=== PATIENT | female | born 1970 | race Caucasian/White ===

== ENCOUNTER 2016-12-12 10:25 | Emergency (ER) | payer SELFPAY ==
[2016-12-12] MEDS ORDERED: IBUPROFEN 800 MG TABLET PO ONE (10:34)
--- NOTE | 2016-12-12 10:35 | ER Document Report ---
ED Medical Screen (RME) - General Stated Complaint: ABDOMINAL PAIN Mode of Arrival: Ambulatory Information source: Patient Notes: Patient presents to the emergency department via EMS for right side pain right upper quadrant pain reports pain with void for the last few days. Also reports migraine nausea. Reports recent treatment for UTI. Reports history of kidney stones and gallbladder issues. I have greeted and performed a rapid initial assessment of this patient. A comprehensive ED assessment and evaluation of the patient, analysis of test results and completion of the medical decision making process will be conducted by additional ED providers. TRAVEL OUTSIDE OF THE [place] IN LAST 30 DAYS: No - Related Data Allergies/Adverse Reactions: No Known Allergies Allergy (Verified 12/12/16 10:33) Past Medical History - Past Medical History Cardiac Medical History: Reports: Hx Hypertension - Off lisinopril for months. Says she can't afford it despite it being $4 Pulmonary Medical History: Reports: Hx COPD Renal/ Medical History: Reports: Hx Kidney Stones Musculoskeltal Medical History: Reports Hx Musculoskeletal Trauma Psychiatric Medical History: Reports: Hx Anxiety, Hx Depression Traumatic Medical History: Reports: Hx Fractures - Wrist Past Surgical History: Reports: Hx Appendectomy, Hx Tubal Ligation - Immunizations Hx Diphtheria, Pertussis, Tetanus Vaccination: No
[2016-12-12 11:31] LABS: APPEARANCE,URINE SLIGHTLY-CLOUDY; BILIRUBIN,URINE NEGATIVE (NEGATIVE); GLUCOSE, URINE NEGATIVE (NEGATIVE); KETONES,URINE NEGATIVE (NEGATIVE); LEUKOCYTE ESTERASE,URINE SMALL (NEGATIVE); NITRITE,URINE NEGATIVE (NEGATIVE); PROTEIN,URINE NEGATIVE (NEGATIVE); URINE SPECIFIC GRAVITY 1.008; UROBILINOGEN,URINE NEGATIVE mg/dL (<2.0)
[2016-12-12] MEDS ORDERED: MORPHINE SULFATE 10 MG/ML INJ IV ONE (12:13)
--- NOTE | 2016-12-12 12:13 | ER Document Report ---
ED GI/ - General Chief Complaint: Abdominal Pain Stated Complaint: ABDOMINAL PAIN Mode of Arrival: Ambulatory Information source: Patient Notes: Patient presents complaining of right lower pelvic pain that radiates around to right flank area for the past 2-3 days. Patient does report some burning with urination. Patient does complain some nausea vomiting and diarrhea. Patient states she's vomited once today and had diarrhea 3 episodes. Patient denies any fever. Patient does report mild headache pain. Patient ports previous history kidney stones and is concerned about that today. TRAVEL OUTSIDE OF THE [place] IN LAST 30 DAYS: No - HPI Patient complains to provider of: Abdominal pain, Dysuria, Flank pain Onset: Other - 3 days Timing/Duration: Gradual Quality of pain: Achy Pain Level: 3 Context: denies: Location: RLQ, Right flank Vaginal bleeding (Compared to normal period): None Sexual history: Active Associated symptoms: Diarrhea, Dysuria, Nausea, Vomiting. denies: Fever, Loss of appetite, Urinary hesitancy, Urinary frequency, Urinary retention, Urinary urgency, Vaginal discharge Exacerbated by: Denies Relieved by: Denies Similar symptoms previously: Yes Recently seen / treated by doctor: No - Related Data Allergies/Adverse Reactions: No Known Allergies Allergy (Verified 12/12/16 10:33) Past Medical History - General Information source: Patient Last Menstrual Period: 12/05/2016 - Social History Smoking Status: Current Every Day Smoker Chew tobacco use (# tins/day): No Frequency of alcohol use: None Drug Abuse: None Occupation: none Lives with: Spouse/Significant other Family History: CAD, CVA, DM, Hyperlipidemia, Hypertension, Malignancy Patient has suicidal ideation: No Patient has homicidal ideation: No - Past Medical History Cardiac Medical History: Reports: Hx Hypertension - Off lisinopril for months. Says she can't afford it despite it being $4 Pulmonary Medical History: Reports: Hx COPD Renal/ Medical History: Reports: Hx Kidney Stones. Denies: Hx Peritoneal Dialysis Musculoskeltal Medical History: Reports Hx Musculoskeletal Trauma Psychiatric Medical History: Reports: Hx Anxiety, Hx Depression Traumatic Medical History: Reports: Hx Fractures - Wrist Past Surgical History: Reports: Hx Appendectomy, Hx Tubal Ligation - Immunizations Hx Diphtheria, Pertussis, Tetanus Vaccination: No Review of Systems - Review of Systems Constitutional: No symptoms reported. denies: Fever, Recent illness EENT: No symptoms reported Cardiovascular: No symptoms reported. denies: Chest pain Respiratory: No symptoms reported. denies: Cough, Short of breath Gastrointestinal: Abdominal pain - Right lower quadrant, Diarrhea, Nausea, Vomiting. denies: Poor appetite Genitourinary: Dysuria, Flank pain Female Genitourinary: No symptoms reported. denies: , Vaginal discharge , Vaginal bleeding Musculoskeletal: Back pain - Right flank Skin: No symptoms reported Hematologic/Lymphatic: No symptoms reported Neurological/Psychological: No symptoms reported Physical Exam - Vital signs Vitals: Temp Pulse Resp BP Pulse Ox 98.4 F 77 20 182/91 H 100 12/12/16 10:38 12/12/16 10:38 12/12/16 10:38 12/12/16 10:38 12/12/16 10:38 - General General appearance: Appears well, Alert In distress: None - HEENT Head: Normocephalic, Atraumatic Eyes: Normal Nasal: Normal Mouth/Lips: Normal Mucous membranes: Normal Neck: Normal, Supple. No: Lymphadenopathy - Respiratory Respiratory status: No respiratory distress Chest status: Nontender Breath sounds: Normal. No: Rales, Rhonchi, Stridor, Wheezing Chest palpation: Normal - Cardiovascular Rhythm: Regular Heart sounds: S1 appreciated, S2 appreciated Murmur: No - Abdominal Inspection: Normal Distension: No distension Bowel sounds: Normal Tenderness: Tender - Right lateral side of abdomen. No: McBurney's point, Charles's sign Organomegaly: No organomegaly - Genitourinary External exam: Normal Speculum exam: Cervix closed Vaginal bleeding: None Bimanuel exam: Adnexal mass - Right side, Adnexal tenderness - Bilateral - Back Back: CVA tenderness - Right - Extremities General upper extremity: Normal inspection, Normal strength General lower extremity: Normal inspection, Normal strength - Neurological Neuro grossly intact: Yes Cognition: Normal [place] Coma Scale Eye Opening: Spontaneous [place] Coma Scale Verbal: Oriented Jb Coma Scale Motor: Obeys Commands [place] Coma Scale Total: 15 - Psychological Associated symptoms: Normal affect, Normal mood - Skin Skin Temperature: Warm Skin Moisture: Dry Skin Color: Normal Course - Re-evaluation Re-evalutation: 12/12/16 13:[address] Julio regarding patient presentation, agrees with plan for ultrasound imaging 12/12/16 15:55 Consulted with [employer] Dr. Bustillos who recommends outpatient follow-up in the office next week. Recommends having patient call the office for follow-up. Also recommends to follow patient up for repeat ultrasound in about a month's time as an outpatient. No additional testing recommended at this time. - Vital Signs Vital signs: Temp Pulse Resp BP Pulse Ox 98.5 F 73 18 176/92 H 98 12/12/16 16:25 12/12/16 16:25 12/12/16 16:25 12/12/16 16:25 12/12/16 16:25 - Laboratory Result Diagrams: 12/12/16 12:17 12/12/16 12:17 Laboratory results interpreted by me: 12/12/16 12/12/16 12/12/16 11:02 12:17 12:17 Hgb 11.5 L Hct 34.6 L MCV 77 L MCH 25.6 L RDW 17.3 H Chloride 108 H Urine Blood SMALL H Ur Leukocyte Esterase SMALL H 12/12/16 15:56 Labs- Entire Visit 12/12/16 12/12/16 12/12/16 11:02 12:17 12:17 WBC 8.5 RBC 4.49 Hgb 11.5 L Hct 34.6 L MCV 77 L MCH 25.6 L MCHC 33.2 RDW 17.3 H Plt Count 224 Seg Neutrophils % 66.8 Lymphocytes % 23.3 Monocytes % 8.5 Eosinophils % 0.6 Basophils % 0.8 Absolute Neutrophils 5.6 Absolute Lymphocytes 2.0 Absolute Monocytes 0.7 Absolute Eosinophils 0.1 Absolute Basophils 0.1 Sodium 142.7 Potassium 4.1 Chloride 108 H Carbon Dioxide 24 Anion Gap 11 BUN 11 Creatinine 0.59 Est GFR ( Amer) > 60 Est GFR (Non-Af Amer) > 60 Glucose 80 Calcium 8.9 Total Bilirubin 0.3 Direct Bilirubin 0.2 Indirect Bilirubin Not Reportable Neonat Total Bilirubin Not Reportable AST 16 ALT 22 Alkaline Phosphatase 75 Total Protein 6.6 Albumin 3.9 Lipase 132.6 Serum HCG, Qual Urine Color YELLOW Urine Appearance SLIGHTLY-CLOUDY Urine pH 7.0 Ur Specific [place] 1.008 Urine Protein NEGATIVE Urine Glucose (UA) NEGATIVE Urine Ketones NEGATIVE Urine Blood SMALL H Urine Nitrite NEGATIVE Urine Bilirubin NEGATIVE Urine Urobilinogen NEGATIVE Ur Leukocyte Esterase SMALL H Urine WBC (Auto) 6 Urine RBC (Auto) 2 Squamous Epi Cells Auto 7 Urine Ascorbic Acid NEGATIVE Trichomonas (Wet Prep) Vaginal WBC Vaginal RBC Vaginal Yeast Chlamydia DNA (PCR) N.gonorrhoeae DNA (PCR) 12/12/16 12/12/16 12/12/16 12:17 13:56 13:56 WBC RBC Hgb Hct MCV MCH MCHC RDW Plt Count Seg Neutrophils % Lymphocytes % Monocytes % Eosinophils % Basophils % Absolute Neutrophils Absolute Lymphocytes Absolute Monocytes Absolute Eosinophils Absolute Basophils Sodium Potassium Chloride Carbon Dioxide Anion Gap BUN Creatinine Est GFR ( Amer) Est GFR (Non-Af Amer) Glucose Calcium Total Bilirubin Direct Bilirubin Indirect Bilirubin Neonat Total Bilirubin AST ALT Alkaline Phosphatase Total Protein Albumin Lipase Serum HCG, Qual NEGATIVE Urine Color Urine Appearance Urine pH Ur Specific [place] Urine Protein Urine Glucose (UA) Urine Ketones Urine Blood Urine Nitrite Urine Bilirubin Urine Urobilinogen Ur Leukocyte Esterase Urine WBC (Auto) Urine RBC (Auto) Squamous Epi Cells Auto Urine Ascorbic Acid Trichomonas (Wet Prep) NO TRICHOMONAS SEEN Vaginal WBC FEW WBCS SEEN Vaginal RBC RARE RBCS SEEN Vaginal Yeast NO YEAST SEEN Chlamydia DNA (PCR) NOT DETECTED N.gonorrhoeae DNA (PCR) NOT DETECTED 12/12/16 16:06 12/12/16 18:36 - Diagnostic Test Radiology reviewed: Reports reviewed Discharge - Discharge Clinical Impression: Flank pain, Urinary symptom or sign, Ovarian mass, right, Vomiting and diarrhea Hypertension Qualifiers: Hypertension type: essential hypertension Qualified Code(s): I10 - Essential ( primary) hypertension Condition: Stable Disposition: HOME, SELF-CARE Instructions: Abdominal Pain ([facility]), Oral Narcotic Medication ([facility]), Antinausea Medication ([facility]), High Blood Pressure, Requiring Treatment ([facility]), Growth or Mass , Pending Workup ([facility]), Nausea or Vomiting, Nonspecific ([facility]), Diarrhea, Nonspecific ([facility]), Urinary Tract Infection ([facility]) Additional Instructions: Return immediately for any new or worsening symptoms Followup with your primary care provider, call tomorrow to make a followup appointment. A primary doctor can refill your blood pressure medications for you. Your ultrasound showed a mass within your right ovary. Follow-up with Dr. Bustillos next week. Call the office on Tuesday for an appointment. Left the office staff know that you were seen in the emergency department and that she would like to see you next week for further evaluation. She would also like you to have a repeat ultrasound in a month. Follow up with a urologist for further evaluation Prescriptions: Cephalexin Monohydrate [Keflex 500 mg Capsule] 500 mg PO BID 7 Days Hydrocodone/Acetaminophen [[place] 5-325 Tablet] 1 each PO Q4 PRN #15 tablet PRN Reason: Lisinopril 10 mg PO DAILY #7 tablet Forms: Elevated Blood Pressure Referrals: JORJE DIALLO MD [ACTIVE STAFF] - Follow up in 3-5 days [facility] [Provider Group] - Follow up tomorrow
[2016-12-12 12:28] LABS: ABSOLUTE BASOPHILS # (AUTO) 0.1 10^3/uL (0.0-0.2); ABSOLUTE EOSINOPHILS # (AUTO) 0.1 10^3/uL (0.0-0.6); ABSOLUTE MONOCYTES (AUTO) 0.7 10^3/uL (0.1-1.4); ABSOLUTE NEUT (AUTO) 5.6 10^3/uL (1.7-8.2); BASOPHILS % (AUTO) 0.8 % (0-2); EOSINOPHILS % (AUTO) 0.6 % (0-6); HEMATOCRIT 34.6 % (36.0-47.0); HEMOGLOBIN 11.5 g/dL (12.0-15.5); HGB HCT DIFFERENCE -0.1; LYMPHOCYTES % (AUTO) 23.3 % (13-45); MEAN CORPUSCULAR HEMOGLOBIN 25.6 pg (27.0-33.4); MEAN CORPUSCULAR HGB CONC 33.2 g/dL (32.0-36.0); MEAN CORPUSCULAR VOLUME 77 fl (80-97); MONOCYTES % (AUTO) 8.5 % (3-13); RED BLOOD COUNT 4.49 10^6/uL (3.72-5.28); RED CELL DISTRIBUTION WIDTH 17.3 % (11.5-14.0); SEGMENTED NEUTROPHILS % (AUTO) 66.8 % (42-78); WHITE BLOOD COUNT 8.5 10^3/uL (4.0-10.5)
[2016-12-12 12:45] LABS: ALANINE AMINOTRANSFERASE 22 U/L (9-52); ALBUMIN 3.9 g/dL (3.5-5.0); ALKALINE PHOSPHATASE 75 U/L (38-126); ANION GAP 11 (5-19); ASPARTATE AMINO TRANSFERASE 16 U/L (14-36); BILIRUBIN,DIRECT 0.2 mg/dL (0.0-0.4); BILIRUBIN,TOTAL 0.3 mg/dL (0.2-1.3); BLOOD UREA NITROGEN 11 mg/dL (7-20); CALCIUM 8.9 mg/dL (8.4-10.2); CARBON DIOXIDE 24 mmol/L (22-30); CHLORIDE 108 mmol/L (98-107); CREATININE RESULT 0.59 mg/dL (0.52-1.25); GLUCOSE 80 mg/dL (75-110); LIPASE 132.6 U/L (23-300); POTASSIUM 4.1 mmol/L (3.6-5.0); SODIUM 142.7 mmol/L (137-145); TOTAL PROTEIN 6.6 g/dL (6.3-8.2)
[2016-12-12 15:43] LABS: CHLAM PCR NOT DETECTED (NOT DETECT)
[2016-12-12 16:29] VITALS: BP 176/92
== END 2016-12-12 16:29 | disposition home or self-care (01) ==
LOC: ER 10:25
DX: R10.2 Pelvic and perineal pain (principal); N83.9 Noninflammatory disorder of ovary, fallopian tube and broad ligament, unspecified; R30.0 Dysuria; R11.2 Nausea with vomiting, unspecified; R19.7 Diarrhea, unspecified; R51 Headache; I10 Essential (primary) hypertension; J44.9 Chronic obstructive pulmonary disease, unspecified; F17.200 Nicotine dependence, unspecified, uncomplicated; Z87.442 Personal history of urinary calculi; Z90.49 Acquired absence of other specified parts of digestive tract; Z98.51 Tubal ligation status
CPT/HCPCS: 99284; 96374; 36415; 87210; 83690; 84703; 85025; 80053; 81001; 87491; 87591; 76830; 93976; J2270

== ENCOUNTER 2017-01-03 14:36 | Emergency (ER) | payer SELFPAY ==
[2017-01-03] MEDS ORDERED: OXYCODONE-ACETAMINOPHEN 5-325 MG TABLET PO ONE ×2 (16:06→21:51)
[2017-01-03] MEDS ORDERED: ONDANSETRON 4 MG TAB.RAPDIS PO ONE (16:06)
[2017-01-03] MEDS ORDERED: LISINOPRIL 10 MG TABLET PO ONE (16:07)
--- NOTE | 2017-01-03 16:09 | ER Document Report ---
ED Medical Screen (RME) - General Chief Complaint: Abdominal Pain Stated Complaint: ABDOMINAL PAIN Notes: This 46-year-old female patient comes in from complaining of right lower quadrant abdominal pain for 23 weeks. She was seen here and found to have a right ovarian mass. She reports she feels more swollen and the pain is getting worse. There is been off and on vaginal bleeding. She also has a migraine headache. She also reports her urine has been darker and just dribbles. Her blood pressure is elevated. She does not have blood pressure medication. She was referred at that time to [facility] and see Dr. Bustillos, she did not do this. She is also to follow-up with a primary care provider for blood pressure medication she did not do that. She reports the car is broken down, they have no friends or family. I have greeted and performed a rapid initial assessment of this patient. A comprehensive ED assessment and evaluation of the patient, analysis of test results and completion of the medical decision making process will be conducted by additional ED providers. TRAVEL OUTSIDE OF THE [place] IN LAST 30 DAYS: No - Related Data Allergies/Adverse Reactions: No Known Allergies Allergy (Verified 12/12/16 10:33) Past Medical History - Past Medical History Cardiac Medical History: Reports: Hx Hypertension - Off lisinopril for months. Says she can't afford it despite it being $4 Pulmonary Medical History: Reports: Hx COPD Renal/ Medical History: Reports: Hx Kidney Stones. Denies: Hx Peritoneal Dialysis Musculoskeltal Medical History: Reports Hx Musculoskeletal Trauma Psychiatric Medical History: Reports: Hx Anxiety, Hx Depression Traumatic Medical History: Reports: Hx Fractures - Wrist Past Surgical History: Reports: Hx Appendectomy, Hx Tubal Ligation - Immunizations Hx Diphtheria, Pertussis, Tetanus Vaccination: No
[2017-01-03 16:55] LABS: APPEARANCE,URINE SLIGHTLY-CLOUDY; BILIRUBIN,URINE NEGATIVE (NEGATIVE); GLUCOSE, URINE NEGATIVE (NEGATIVE); KETONES,URINE NEGATIVE (NEGATIVE); LEUKOCYTE ESTERASE,URINE MODERATE (NEGATIVE); NITRITE,URINE NEGATIVE (NEGATIVE); PROTEIN,URINE NEGATIVE (NEGATIVE); URINE SPECIFIC GRAVITY 1.026; UROBILINOGEN,URINE NEGATIVE mg/dL (<2.0)
--- NOTE | 2017-01-03 19:56 | ER Document Report ---
ED General - General Chief Complaint: Abdominal Pain Stated Complaint: ABDOMINAL PAIN Mode of Arrival: Medic Information source: Patient Notes: Patient presents to the emergency department with complaints of right lower quadrant abdominal pain for close to a month. She reports the area feels swollen and pain radiates to her back. Patient was evaluated and treated for same symptoms on December 12. Patient was supposed to follow-up with [employer] for ovarian mass but reports her car broke down and she was unable to make the appointment. Patient reports increasing pain. She reports she did have some vomiting diarrhea couple days ago and none today. Denies fever. Reports she has a throbbing headache. She also reports her blood pressures been very high. Patient also reports she's had frequent menses. She reports she has her menses every couple weeks and it lasts for a week and is heavy. She denies pain with void, denies vaginal discharge. TRAVEL OUTSIDE OF THE [place] IN LAST 30 DAYS: No - HPI Onset: Other - over 23 days Onset/Duration: Persistent Quality of pain: Achy Severity: Severe Pain Level: 5 Associated symptoms: None Exacerbated by: Denies Relieved by: Denies Similar symptoms previously: Yes Recently seen / treated by doctor: Yes - Related Data Allergies/Adverse Reactions: No Known Allergies Allergy (Verified 12/12/16 10:33) Past Medical History - General Information source: Patient Last Menstrual Period: one week ago - Social History Smoking Status: Current Every Day Smoker Cigarette use (# per day): Yes Chew tobacco use (# tins/day): No Frequency of alcohol use: None Drug Abuse: None Family History: CAD, CVA, DM, Hyperlipidemia, Hypertension, Malignancy Patient has suicidal ideation: No Patient has homicidal ideation: No - Past Medical History Cardiac Medical History: Reports: Hx Hypertension - Off lisinopril for months. Says she can't afford it despite it being $4 Pulmonary Medical History: Reports: Hx COPD Renal/ Medical History: Reports: Hx Kidney Stones. Denies: Hx Peritoneal Dialysis Musculoskeltal Medical History: Reports Hx Musculoskeletal Trauma Psychiatric Medical History: Reports: Hx Anxiety, Hx Depression Traumatic Medical History: Reports: Hx Fractures - Wrist Past Surgical History: Reports: Hx Appendectomy, Hx Tubal Ligation - Immunizations Hx Diphtheria, Pertussis, Tetanus Vaccination: No Review of Systems - Review of Systems Notes: Review HPI for review of systems., All other systems negative Physical Exam - Vital signs Vitals: Temp Pulse Resp BP Pulse Ox 98.2 F 79 16 195/100 H 99 01/03/17 15:25 01/03/17 15:25 01/03/17 15:25 01/03/17 15:25 01/03/17 15:25 - Notes Notes: PHYSICAL EXAMINATION: GENERAL: Well-appearing and in no acute distress nontoxic looking, patient is laying on the stretcher watching her iPad. HEAD: Atraumatic, normocephalic. EYES: Pupils equal round and reactive to light, extraocular movements intact, sclera anicteric, conjunctiva are normal. ENT: nares patent, Moist mucous membranes. NECK: Normal range of motion, supple without lymphadenopathy LUNGS: CTAB and equal. No wheezes rales or rhonchi. HEART: Regular rate and rhythm without murmurs ABDOMEN: Soft,RLQ tenderness. No guarding, no rebound BACK: Reports right side/flank pain EXTREMITIES: Normal range of motion, no pitting edema. No cyanosis. NEUROLOGICAL: Cranial nerves grossly intact. Normal sensory/motor exams. PSYCH: Normal mood, normal affect. SKIN: Warm, Dry, normal turgor, no rashes or lesions noted Course - Re-evaluation Re-evalutation: 01/03/17 19:56 pt instructed on pending labs, repeat us. 01/03/17 21:55 Dr. Silverman was contacted regarding patient's ultrasound showing endometrial thickening with a polypoid appearance. She reports patient does need a biopsy. She reports patient is to call the office tomorrow and inform the office that she needs to be seen this week. Patient was informed of the ultrasound and the need for biopsy. Patient was informed of possible cancer. Patient verbalized understanding to instructions to call. Patient was also instructed on high blood pressure. She was instructed on Percocet for the pain. She verbalized understanding to all instructions. - Vital Signs Vital signs: Temp Pulse Resp BP Pulse Ox 98.2 F 79 16 195/100 H 99 01/03/17 15:25 01/03/17 15:25 01/03/17 15:25 01/03/17 15:25 01/03/17 15:25 - Laboratory Result Diagrams: 01/03/17 19:46 01/03/17 19:46 Laboratory results interpreted by me: 01/03/17 01/03/17 16:25 19:46 MCV 79 L MCH 26.0 L RDW 18.4 H Ur Leukocyte Esterase MODERATE H - Diagnostic Test Radiology reviewed: Image reviewed, Reports reviewed - Diagnostic report text EXAM DESCRIPTION: U/S NON-OB PELVIS TV W/O DOP COMPLETED DATE/TIME: 2016 9:00 pm REASON FOR STUDY: ovarian mass, re-eval COMPARISON: 12/12/2016 TECHNIQUE: Dynamic and static grayscale images acquired of the pelvis via transvaginal approach and recorded on PACS. Additional selected color Doppler and spectral images recorded. LIMITATIONS: None. FINDINGS: UTERUS: Contour normal. No mass. ENDOMETRIAL STRIPE: There is central focal thickening the polypoid appearance measuring 13 x 6 by 10 mm with internal color flow, possible polyp. CERVIX: No nabothian cysts. RIGHT OVARY: Similar appearance of the 2 cm heterogeneous nodule with internal and peripheral color flow. RIGHT OVARY DOPPLER: Normal arterial vascular flow without evidence for torsion. LEFT OVARY: 17 mm luteal cyst. LEFT OVARY DOPPLER: Normal arterial vascular flow without evidence for torsion. FREE FLUID: Small amount of free fluid in the cul-de-sac. OTHER: No other significant finding. MEASUREMENTS: UTERUS: 8.1 x 5.0 x 4.0 cm ENDOMETRIAL STRIPE: 13 mm RIGHT OVARY: 2.6 x 2.5 x 1.3 cm LEFT OVARY: 2.7 x 1.6 x 1.6 cm TECHNICAL DOCUMENTATION: JOB ID: [id number]- All Rights Reserved US/U/S NON-OB PELVIS TV W/O DOP IMPRESSION: There is central focal endometrial thickening with a polypoid appearance measuring 13 x 6 by 10 mm with internal color flow, possible polyp.Similar appearance of the right ovarian 2 cm heterogeneous nodule with internal and peripheral color flow. Outpatient [facility] follow-up is recommended Discharge - Discharge Clinical Impression: Thickened endometrium, Elevated blood pressure reading Abdominal pain Qualifiers: Abdominal location: right lower quadrant Qualified Code(s): R10.31 - Right lower quadrant pain Condition: Stable Instructions: Oral Narcotic Medication ([facility]), Abdominal Pain ([facility]) Additional Instructions: *You have been evaluated for abdominal pain, endometrial thickening *Take medication as prescribed *Follow up with [employer] tomorrow. Call [employer], inform them that Dr Silverman has been contacted by the Emergency Department and has advised that you need an appointment this week *Return to ED for worsening condition, changes, needs Monitor your blood pressure. Your blood pressure was elevated today. This may be because you were anxious, in pain or because you need medication. It is important to follow up with your primary care provider for full evaluation. Prescriptions: Oxycodone HCl/Acetaminophen [Percocet 5-325 mg Tablet] 1 - 2 tab PO ASDIR PRN # 20 tablet PRN Reason: Forms: Elevated Blood Pressure Referrals: ROME SILVERMAN MD [ACTIVE STAFF] - (call tomorrow) [facility] [Provider Group] (call tomorrow for appointment this week)
[2017-01-03 19:59] LABS: ABSOLUTE BASOPHILS # (AUTO) 0.1 10^3/uL (0.0-0.2); ABSOLUTE EOSINOPHILS # (AUTO) 0.2 10^3/uL (0.0-0.6); ABSOLUTE LYMPHOCYTES (AUTO) 3.1 10^3/uL (0.5-4.7); ABSOLUTE MONOCYTES (AUTO) 0.9 10^3/uL (0.1-1.4); ABSOLUTE NEUT (AUTO) 4.9 10^3/uL (1.7-8.2); HEMATOCRIT 36.3 % (36.0-47.0); HGB HCT DIFFERENCE -0.3; LYMPHOCYTES % (AUTO) 33.8 % (13-45); MEAN CORPUSCULAR VOLUME 79 fl (80-97); MONOCYTES % (AUTO) 9.6 % (3-13); RED BLOOD COUNT 4.61 10^6/uL (3.72-5.28); RED CELL DISTRIBUTION WIDTH 18.4 % (11.5-14.0); SEGMENTED NEUTROPHILS % (AUTO) 53.6 % (42-78); WHITE BLOOD COUNT 9.1 10^3/uL (4.0-10.5)
[2017-01-03 20:28] LABS: ALANINE AMINOTRANSFERASE 25 U/L (9-52); ALBUMIN 4.3 g/dL (3.5-5.0); ALKALINE PHOSPHATASE 83 U/L (38-126); ANION GAP 10 (5-19); ASPARTATE AMINO TRANSFERASE 18 U/L (14-36); BILIRUBIN,DIRECT 0.1 mg/dL (0.0-0.4); BILIRUBIN,TOTAL 0.2 mg/dL (0.2-1.3); BLOOD UREA NITROGEN 14 mg/dL (7-20); CALCIUM 9.5 mg/dL (8.4-10.2); CARBON DIOXIDE 25 mmol/L (22-30); CHLORIDE 106 mmol/L (98-107); CREATININE RESULT 0.64 mg/dL (0.52-1.25); GLUCOSE 91 mg/dL (75-110); POTASSIUM 4.3 mmol/L (3.6-5.0); SODIUM 141.2 mmol/L (137-145)
[2017-01-03 22:24] VITALS: BP 156/90
== END 2017-01-03 22:24 | disposition home or self-care (01) ==
LOC: ER 14:36
DX: R10.31 Right lower quadrant pain (principal); R03.0 Elevated blood-pressure reading, without diagnosis of hypertension; R93.8 Abnormal findings on diagnostic imaging of other specified body structures; F17.210 Nicotine dependence, cigarettes, uncomplicated; J44.9 Chronic obstructive pulmonary disease, unspecified; Z87.442 Personal history of urinary calculi; Z98.51 Tubal ligation status
CPT/HCPCS: 99284; 36415; 84703; 85025; 80053; 81001; 76830; S0119

== ENCOUNTER 2017-04-10 16:23 | Emergency (ER) | payer SELFPAY ==
[2017-04-10 16:34] VITALS: BP 161/96
== END 2017-04-10 17:58 | disposition left against medical advice (07) ==
LOC: ER 16:23
DX: Z53.21 Procedure and treatment not carried out due to patient leaving prior to being seen by health care provider (principal)

== ENCOUNTER 2017-05-06 08:12 | Emergency (ER) | payer OTHER ==
[2017-05-06] MEDS ORDERED: OXYCODONE-ACETAMINOPHEN 5-325 MG TABLET PO ONE (09:30)
[2017-05-06 10:00] LABS: ABSOLUTE BASOPHILS # (AUTO) 0.1 10^3/uL (0.0-0.2); ABSOLUTE LYMPHOCYTES (AUTO) 1.5 10^3/uL (0.5-4.7); ABSOLUTE MONOCYTES (AUTO) 0.4 10^3/uL (0.1-1.4); ABSOLUTE NEUT (AUTO) 10.4 10^3/uL (1.7-8.2); BASOPHILS % (AUTO) 0.6 % (0-2); EOSINOPHILS % (AUTO) 0.2 % (0-6); HEMATOCRIT 45.4 % (36.0-47.0); HEMOGLOBIN 15.1 g/dL (12.0-15.5); HGB HCT DIFFERENCE -0.1; LYMPHOCYTES % (AUTO) 12.2 % (13-45); MEAN CORPUSCULAR HEMOGLOBIN 27.2 pg (27.0-33.4); MEAN CORPUSCULAR HGB CONC 33.3 g/dL (32.0-36.0); MEAN CORPUSCULAR VOLUME 82 fl (80-97); MONOCYTES % (AUTO) 3.5 % (3-13); RED BLOOD COUNT 5.56 10^6/uL (3.72-5.28); RED CELL DISTRIBUTION WIDTH 16.9 % (11.5-14.0); SEGMENTED NEUTROPHILS % (AUTO) 83.5 % (42-78); WHITE BLOOD COUNT 12.5 10^3/uL (4.0-10.5)
[2017-05-06 10:03] LABS: APPEARANCE,URINE CLEAR; BILIRUBIN,URINE NEGATIVE (NEGATIVE); GLUCOSE, URINE NEGATIVE (NEGATIVE); KETONES,URINE TRACE mg/dL (NEGATIVE); LEUKOCYTE ESTERASE,URINE NEGATIVE (NEGATIVE); NITRITE,URINE NEGATIVE (NEGATIVE); PROTEIN,URINE NEGATIVE (NEGATIVE); URINE SPECIFIC GRAVITY 1.003; UROBILINOGEN,URINE NEGATIVE mg/dL (<2.0)
[2017-05-06 10:18] LABS: ALANINE AMINOTRANSFERASE 26 U/L (9-52); ALBUMIN 5.2 g/dL (3.5-5.0); ALKALINE PHOSPHATASE 86 U/L (38-126); ANION GAP 15 (5-19); ASPARTATE AMINO TRANSFERASE 23 U/L (14-36); BILIRUBIN,DIRECT 0.5 mg/dL (0.0-0.4); BILIRUBIN,TOTAL 0.7 mg/dL (0.2-1.3); BLOOD UREA NITROGEN 10 mg/dL (7-20); CARBON DIOXIDE 22 mmol/L (22-30); CHLORIDE 103 mmol/L (98-107); CREATININE RESULT 0.66 mg/dL (0.52-1.25); GLUCOSE 86 mg/dL (75-110); LIPASE 156.6 U/L (23-300); POTASSIUM 3.9 mmol/L (3.6-5.0); TOTAL PROTEIN 8.8 g/dL (6.3-8.2)
--- NOTE | 2017-05-06 10:37 | ER Document Report ---
ED GI/ - General Chief Complaint: Abdominal Pain Stated Complaint: ABDOMINAL PAIN Mode of Arrival: Ambulatory Information source: Patient Notes: Patient presents complaining of right-sided flank pain that radiates to right side of abdomen. Patient does report diarrhea that started yesterday and she has had 3 episodes today. Patient does complain of some urinary frequency with odor. Patient denies any vaginal bleeding or discharge. Patient denies any fever. Patient states she has a known history of a mass on her right ovary but she just got her insurance and plans to follow-up with Dr. Silverman for further evaluation. TRAVEL OUTSIDE OF THE [place] IN LAST 30 DAYS: No - HPI Patient complains to provider of: Abdominal pain, Flank pain. No: Vaginal discharge, Vaginal pain, Vomiting Onset: Yesterday Timing/Duration: Gradual Quality of pain: Sharp Pain Level: 4 Location: Right flank, Other - Right side of abdomen Vaginal bleeding (Compared to normal period): None Associated symptoms: Diarrhea, Urinary frequency. denies: Fever, Nausea, Urinary hesitancy, Vomiting Exacerbated by: Denies Relieved by: Denies Similar symptoms previously: No Recently seen / treated by doctor: No - Related Data Allergies/Adverse Reactions: No Known Allergies Allergy (Verified 05/06/17 08:18) Past Medical History - General Information source: Patient - Social History Smoking Status: Current Some Day Smoker Frequency of alcohol use: None Drug Abuse: None Lives with: Spouse/Significant other Family History: CAD, CVA, DM, Hyperlipidemia, Hypertension, Malignancy - Past Medical History Cardiac Medical History: Reports: Hx Hypertension - Off lisinopril for months. Says she can't afford it despite it being $4 Pulmonary Medical History: Reports: Hx COPD Renal/ Medical History: Reports: Hx Kidney Stones. Denies: Hx Peritoneal Dialysis Malignancy Medical History: Reports: Other Other: right ovarian mass Musculoskeltal Medical History: Reports Hx Musculoskeletal Trauma Psychiatric Medical History: Reports: Hx Anxiety, Hx Depression Traumatic Medical History: Reports: Hx Fractures - Wrist Past Surgical History: Reports: Hx Appendectomy, Hx Tubal Ligation - Immunizations Hx Diphtheria, Pertussis, Tetanus Vaccination: No Review of Systems - Review of Systems Constitutional: No symptoms reported. denies: Fever, Recent illness EENT: No symptoms reported Cardiovascular: No symptoms reported. denies: Chest pain Respiratory: No symptoms reported. denies: Cough, Short of breath Gastrointestinal: Abdominal pain, Diarrhea. denies: Nausea, Vomiting Genitourinary: Frequency, Flank pain. denies: Dysuria Female Genitourinary: No symptoms reported. denies: Vaginal discharge, Vaginal bleeding Musculoskeletal: Back pain - right lower back Skin: No symptoms reported Hematologic/Lymphatic: No symptoms reported Neurological/Psychological: No symptoms reported Physical Exam - Vital signs Vitals: Temp Pulse Resp BP Pulse Ox 98.2 F 81 16 154/94 H 98 05/06/17 08:19 05/06/17 08:19 05/06/17 08:19 05/06/17 08:19 05/06/17 08:19 - General General appearance: Appears well, Alert In distress: None - HEENT Head: Normocephalic, Atraumatic Eyes: Normal Nasal: Normal Mouth/Lips: Normal Pharynx: Normal Neck: Normal, Supple. No: Lymphadenopathy - Respiratory Respiratory status: No respiratory distress Chest status: Nontender Breath sounds: Normal. No: Rales, Rhonchi, Stridor, Wheezing Chest palpation: Normal - Cardiovascular Rhythm: Regular Heart sounds: S1 appreciated, S2 appreciated Murmur: No - Abdominal Inspection: Normal Distension: No distension Bowel sounds: Normal Tenderness: Tender - r side abd tenderness Organomegaly: No organomegaly - Back Back: CVA tenderness - right - Extremities General upper extremity: Normal inspection, Normal ROM General lower extremity: Normal inspection, Normal ROM - Neurological Neuro grossly intact: Yes Cognition: Normal Jb Coma Scale Eye Opening: Spontaneous Jb Coma Scale Verbal: Oriented Jb Coma Scale Motor: Obeys Commands Jb Coma Scale Total: 15 - Psychological Associated symptoms: Normal affect, Normal mood - Skin Skin Temperature: Warm Skin Moisture: Dry Skin Color: Normal Course - Re-evaluation Re-evalutation: 05/06/17 11:19 Patient's abdomen soft, nontender at this time. Patient reports having diarrhea 3 episodes today. Discussed findings on CT report. Patient encouraged to follow-up with a middle school counselor for further evaluation of her ovarian mass as well as to follow-up with a urologist for further evaluation of renal stone. Patient presents with abdominal pain without signs of peritonitis or other life-threatening or serious etiology. Patient appears stable for discharge and has been instructed to return immediately if the symptoms worsen in any way, or in 8-12 hours if not improved for reevaluation. The patient has been instructed to return if the symptoms worsen or change in any way. 05/06/17 11:23 Patient denies any concerns about sexually transmitted infection. Patient denies any vaginal bleeding or discharge. Patient defers pelvic examination at this time - Vital Signs Vital signs: Temp Pulse Resp BP Pulse Ox 98.5 F 66 18 170/101 H 99 05/06/17 11:51 05/06/17 11:51 05/06/17 11:51 05/06/17 11:51 05/06/17 11:51 - Laboratory Result Diagrams: 05/06/17 09:46 05/06/17 09:46 Laboratory results interpreted by me: 05/06/17 05/06/17 05/06/17 09:46 09:46 09:46 WBC 12.5 H RBC 5.56 H RDW 16.9 H Seg Neutrophils % 83.5 H Lymphocytes % 12.2 L Absolute Neutrophils 10.4 H Direct Bilirubin 0.5 H Total Protein 8.8 H Albumin 5.2 H Urine Ketones TRACE H 05/06/17 11:19 Labs- Entire Visit 05/06/17 05/06/17 05/06/17 09:46 09:46 09:46 WBC 12.5 H RBC 5.56 H Hgb 15.1 Hct 45.4 MCV 82 MCH 27.2 MCHC 33.3 RDW 16.9 H Plt Count 247 Seg Neutrophils % 83.5 H Lymphocytes % 12.2 L Monocytes % 3.5 Eosinophils % 0.2 Basophils % 0.6 Absolute Neutrophils 10.4 H Absolute Lymphocytes 1.5 Absolute Monocytes 0.4 Absolute Eosinophils 0.0 Absolute Basophils 0.1 Sodium 140.0 Potassium 3.9 Chloride 103 Carbon Dioxide 22 Anion Gap 15 BUN 10 Creatinine 0.66 Est GFR ( Amer) > 60 Est GFR (Non-Af Amer) > 60 Glucose 86 Calcium 10.0 Total Bilirubin 0.7 Direct Bilirubin 0.5 H Indirect Bilirubin Not Reportable Neonat Total Bilirubin Not Reportable AST 23 ALT 26 Alkaline Phosphatase 86 Total Protein 8.8 H Albumin 5.2 H Lipase 156.6 Serum HCG, Qual NEGATIVE Urine Color Urine Appearance Urine pH Ur Specific [place] Urine Protein Urine Glucose (UA) Urine Ketones Urine Blood Urine Nitrite Urine Bilirubin Urine Urobilinogen Ur Leukocyte Esterase Urine WBC (Auto) Squamous Epi Cells Auto Urine Mucus (Auto) Urine Ascorbic Acid 05/06/17 09:46 WBC RBC Hgb Hct MCV MCH MCHC RDW Plt Count Seg Neutrophils % Lymphocytes % Monocytes % Eosinophils % Basophils % Absolute Neutrophils Absolute Lymphocytes Absolute Monocytes Absolute Eosinophils Absolute Basophils Sodium Potassium Chloride Carbon Dioxide Anion Gap BUN Creatinine Est GFR ( Amer) Est GFR (Non-Af Amer) Glucose Calcium Total Bilirubin Direct Bilirubin Indirect Bilirubin Neonat Total Bilirubin AST ALT Alkaline Phosphatase Total Protein Albumin Lipase Serum HCG, Qual Urine Color STRAW Urine Appearance CLEAR Urine pH 6.0 Ur Specific [place] 1.003 Urine Protein NEGATIVE Urine Glucose (UA) NEGATIVE Urine Ketones TRACE H Urine Blood NEGATIVE Urine Nitrite NEGATIVE Urine Bilirubin NEGATIVE Urine Urobilinogen NEGATIVE Ur Leukocyte Esterase NEGATIVE Urine WBC (Auto) 1 Squamous Epi Cells Auto <1 Urine Mucus (Auto) RARE Urine Ascorbic Acid NEGATIVE - Diagnostic Test Radiology reviewed: Reports reviewed Discharge - Discharge Clinical Impression: Hx of essential hypertension, Flank pain, Renal cyst, hx right ovarian mass Diarrhea Qualifiers: Diarrhea type: unspecified type Qualified Code(s): R19.7 - Diarrhea, unspecified Umbilical hernia Qualifiers: Obstruction and gangrene presence: without obstruction or gangrene Qualified Code(s): K42.9 - Umbilical hernia without obstruction or gangrene Condition: Stable Disposition: HOME, SELF-CARE Instructions: Abdominal Pain ([facility]), Diarrhea, Nonspecific ([facility]), Flank Pain ( [facility]), Umbilical Hernia ([facility]) Additional Instructions: Return immediately for any new or worsening symptoms Followup with your primary care provider, call tomorrow to make a followup appointment Follow-up with a urologist for further evaluation of her renal cyst follow-up with a middle school counselor for further evaluation of ovarian mass Prescriptions: Lisinopril 10 mg PO DAILY #15 tablet Oxycodone HCl/Acetaminophen [Percocet 5-325 mg Tablet] 1 tab PO ASDIR PRN #10 tablet PRN Reason: Forms: Elevated Blood Pressure Referrals: ROME SILVERMAN MD [ACTIVE STAFF] - Follow up as needed [facility] [Provider Group] - Follow up as needed [facility] [Provider Group] - Follow up as needed [facility] [Provider Group] - Follow up as needed
--- NOTE | 2017-05-06 11:10 | RADIOLOGY REPORT (SQ) ---
EXAM DESCRIPTION: CT LTD RENAL STONE PROTOCOL ON COMPLETED DATE/TIME: 05/06/2017 10:58 am REASON FOR STUDY: r flank, r side abd pain COMPARISON: Abdominal ultrasound 09/08/2015, 04/19/2016. CT abdomen pelvis 04/22/2016 TECHNIQUE: CT scan of the abdomen and pelvis performed without intravenous or oral contrast. Images reviewed with lung, soft tissue, and bone windows. Reconstructed coronal and sagittal MPR images revi ewed. All images stored on PACS. All CT scanners at this facility use dose modulation, iterative reconstruction, and/or weight based d osing when appropriate to reduce radiation dose to as low as reasonably achievable (ALARA). [facility]: Dose Right [facility]: CareDose [facility]: Dose Right [facility]: Teradose 4D [facility]: [employer] RADIATION DOSE: Up-to-date CT equipment and radiation dose reduction techniques were employed. CTDIv ol: 4.8 mGy. DLP: 237 mGy-cm.mGy. LIMITATIONS: No oral or IV contrast FINDINGS: LOWER CHEST: No significant findings. No nodules or infiltrates. NON-CONTRASTED LIVER, SPLEEN, ADRENALS: Evaluation limited by lack of IV contrast. No identified sign ificant masses. PANCREAS: No masses. No peripancreatic inflammatory changes. GALLBLADDER: No identified stones by CT criteria. No inflammatory changes to suggest cholecystitis. RIGHT KIDNEY AND URETER: No suspicious masses. Assessment limited by lack of IV contrast. Stable 2.5 cm right midpole renal cortical cyst. No significant calcifications. No hydronephrosis or hydrour eter. LEFT KIDNEY AND URETER: No suspicious masses. Assessment limited by lack of IV contrast. No signifi cant calcifications. No hydronephrosis or hydroureter. AORTA AND RETROPERITONEUM: No aneurysm. No retroperitoneal masses or adenopathy. BOWEL AND PERITONEAL CAVITY: No obvious masses or inflammatory changes. No free fluid. APPENDIX: Normal. PELVIS, BLADDER, AND ABDOMINAL WALL:No abnormal masses. No free fluid. Bladder normal. Small fatty u mbilical hernia with the abdominal wall defect less than 1 cm diameter on axial image 33, sagittal im age 48, and coronal image 7 BONES: No significant findings. OTHER: No other significant finding. IMPRESSION: No CT findings to explain history of left flank pain. TECHNICAL DOCUMENTATION: JOB ID: [id number] Quality ID # [id number]: Final reports with documentation of one or more dose reduction techniques (e.g., Au tomated exposure control, adjustment of the mA and/or kV according to patient size, use of iterative reconstruction technique) 2010 [employer]- All Rights Reserved
[2017-05-06 11:54] VITALS: BP 170/101
== END 2017-05-06 11:51 | disposition home or self-care (01) ==
LOC: ER 08:12
DX: N83.201 Unspecified ovarian cyst, right side (principal); N28.1 Cyst of kidney, acquired; K42.9 Umbilical hernia without obstruction or gangrene; I10 Essential (primary) hypertension; R10.9 Unspecified abdominal pain; R19.7 Diarrhea, unspecified; F17.200 Nicotine dependence, unspecified, uncomplicated
CPT/HCPCS: 36415; 76380; 80053; 81001; 83690; 84703; 85025; 99284

== ENCOUNTER → 2017-06-14 | Outpatient (CLI) | payer OTHER ==
--- NOTE | 2017-06-14 10:13 | RADIOLOGY REPORT (SQ) ---
EXAM DESCRIPTION: U/S ABDOMEN LIMITED W/O DOP COMPLETED DATE/TIME: 06/14/2017 9:55 am REASON FOR STUDY: ABDOMINL PAIN R10.9 UNSPECIFIED ABDOMINAL PAIN COMPARISON: None. TECHNIQUE: Dynamic and static grayscale images acquired of the abdomen and recorded on PACS. Additio nal selected color Doppler and spectral images recorded. LIMITATIONS: None. FINDINGS: PANCREAS: No masses. Visualized pancreatic duct normal caliber. LIVER: No masses. Echotexture normal. LIVER VASCULATURE: Normal directional flow of the main portal vein and hepatic veins. GALLBLADDER: No stones. 3 mm mucosal polyp. Normal wall thickness. No pericholecystic fluid. ULTRASOUND-DETECTED TEJADA'S SIGN: Negative. INTRAHEPATIC DUCTS AND COMMON DUCT: CBD and intrahepatic ducts normal caliber. No filling defects. INFERIOR VENA CAVA: Normal flow. AORTA: No aneurysm. RIGHT KIDNEY: Normal size. Normal echogenicity. 2.2 cm cyst. No solid or suspicious masses. No hyd ronephrosis. No calcifications. PERITONEAL AND RIGHT PLEURAL SPACE: No ascites or effusions. OTHER: No other significant findings. IMPRESSION: SMALL MUCOSAL POLYP IN THE GALLBLADDER. CORTICAL CYST IN THE RIGHT KIDNEY. NO SIGNIFIC ANT CHANGE. NO ACUTE FINDINGS. TECHNICAL DOCUMENTATION: JOB ID: [id number] [employer]- All Rights Reserved
== END ==
LOC: RAD 08:12
PROVIDERS: ATTEND Family Medicine
DX: R10.9 Unspecified abdominal pain (principal); M54.5 Low back pain
CPT/HCPCS: 76705

== ENCOUNTER 2017-06-21 15:04 | Emergency (ER) | payer OTHER ==
--- NOTE | 2017-06-21 15:37 | ER Document Report ---
ED Medical Screen (RME) - General Chief Complaint: Pelvic Pain Stated Complaint: ABDOMINAL PAIN Time Seen by Provider: 06/21/17 15:34 Notes: Patient is complaining of lower abdominal pain that started about 2 days ago. She has had some nausea and is vomited a couple of times. Also having some diarrhea. Pain is located in the lower mid suprapubic region. She is having burning with urination. Has not had any fever. Patient was seen here about a month ago and is suspected of having gallbladder disease, although she did not show stones on her gallbladder bladder ultrasound. She has been scheduled by her primary care provider to have a HIDA scan done in about a week. Patient has had her appendix removed. She had a tubal ligation done 21 years ago and then had a child 2 years later, but has not had any more children since then. Hypertension. TRAVEL OUTSIDE OF THE [place] IN LAST 30 DAYS: No - Related Data Allergies/Adverse Reactions: No Known Allergies Allergy (Verified 06/21/17 15:09) Past Medical History - Social History Chew tobacco use (# tins/day): No Frequency of alcohol use: None Drug Abuse: None - Past Medical History Cardiac Medical History: Reports: Hx Hypertension - Off lisinopril for months. Says she can't afford it despite it being $4 Pulmonary Medical History: Reports: Hx COPD Renal/ Medical History: Reports: Hx Kidney Stones. Denies: Hx Peritoneal Dialysis Musculoskeltal Medical History: Reports Hx Musculoskeletal Trauma Psychiatric Medical History: Reports: Hx Anxiety, Hx Depression Traumatic Medical History: Reports: Hx Fractures - Wrist Past Surgical History: Reports: Hx Appendectomy, Hx Tubal Ligation - Immunizations Hx Diphtheria, Pertussis, Tetanus Vaccination: No History of Influenza Vaccine for 06/2017 - 11/2017 Season: No Physical Exam - Vital signs Vitals: Temp Pulse Resp BP Pulse Ox 98.7 F 74 18 133/86 H 99 06/21/17 15:13 06/21/17 15:13 06/21/17 15:13 06/21/17 15:13 06/21/17 15:13 Course - Vital Signs Vital signs: Temp Pulse Resp BP Pulse Ox 98.7 F 74 18 133/86 H 99 06/21/17 15:13 06/21/17 15:13 06/21/17 15:13 06/21/17 15:13 06/21/17 15:13
[2017-06-21 16:05] LABS: ABSOLUTE BASOPHILS # (AUTO) 0.1 10^3/uL (0.0-0.2); ABSOLUTE EOSINOPHILS # (AUTO) 0.2 10^3/uL (0.0-0.6); ABSOLUTE LYMPHOCYTES (AUTO) 2.6 10^3/uL (0.5-4.7); ABSOLUTE MONOCYTES (AUTO) 0.7 10^3/uL (0.1-1.4); ABSOLUTE NEUT (AUTO) 6.5 10^3/uL (1.7-8.2); BASOPHILS % (AUTO) 0.7 % (0-2); EOSINOPHILS % (AUTO) 1.5 % (0-6); HEMATOCRIT 39.7 % (36.0-47.0); HEMOGLOBIN 13.5 g/dL (12.0-15.5); HGB HCT DIFFERENCE 0.8; LYMPHOCYTES % (AUTO) 25.8 % (13-45); MEAN CORPUSCULAR HEMOGLOBIN 27.9 pg (27.0-33.4); MEAN CORPUSCULAR VOLUME 82 fl (80-97); RED BLOOD COUNT 4.84 10^6/uL (3.72-5.28); RED CELL DISTRIBUTION WIDTH 17.1 % (11.5-14.0); WHITE BLOOD COUNT 9.9 10^3/uL (4.0-10.5)
[2017-06-21 16:10] LABS: APPEARANCE,URINE CLEAR; BILIRUBIN,URINE NEGATIVE (NEGATIVE); GLUCOSE, URINE NEGATIVE (NEGATIVE); KETONES,URINE NEGATIVE (NEGATIVE); LEUKOCYTE ESTERASE,URINE TRACE (NEGATIVE); NITRITE,URINE NEGATIVE (NEGATIVE); PROTEIN,URINE NEGATIVE (NEGATIVE); URINE SPECIFIC GRAVITY 1.009; UROBILINOGEN,URINE NEGATIVE mg/dL (<2.0)
[2017-06-21 16:28] LABS: ALANINE AMINOTRANSFERASE 22 U/L (9-52); ALBUMIN 4.6 g/dL (3.5-5.0); ALKALINE PHOSPHATASE 89 U/L (38-126); ANION GAP 10 (5-19); ASPARTATE AMINO TRANSFERASE 16 U/L (14-36); BILIRUBIN,DIRECT 0.2 mg/dL (0.0-0.4); BILIRUBIN,TOTAL 0.2 mg/dL (0.2-1.3); BLOOD UREA NITROGEN 16 mg/dL (7-20); CARBON DIOXIDE 24 mmol/L (22-30); CHLORIDE 105 mmol/L (98-107); CREATININE RESULT 0.76 mg/dL (0.52-1.25); GLUCOSE 82 mg/dL (75-110); LIPASE 206.7 U/L (23-300); POTASSIUM 4.3 mmol/L (3.6-5.0); SODIUM 138.6 mmol/L (137-145); TOTAL PROTEIN 7.6 g/dL (6.3-8.2)
[2017-06-21] MEDS ORDERED: TRAMADOL HCL 50 MG TABLET PO ONE (17:21)
--- NOTE | 2017-06-21 18:20 | ER Document Report ---
ED General - General Chief Complaint: Pelvic Pain Stated Complaint: ABDOMINAL PAIN Time Seen by Provider: 06/21/17 15:34 Mode of Arrival: Ambulatory Information source: Patient Notes: 46-year-old female presents with multiple complaints stating that she is having some burning with urination, pelvic pain. pt notes symptoms have been on going for a long period of time. pt denies any fevers or chills. pt denies any abd pain. TRAVEL OUTSIDE OF THE [place] IN LAST 30 DAYS: No - HPI Onset: Other Onset/Duration: Intermittent Quality of pain: Cramping Severity: Mild Pain Level: 1 Associated symptoms: None Exacerbated by: Coughing - Coughing makes her urinate, Other - Downing when she urinates Relieved by: Denies Similar symptoms previously: Yes Recently seen / treated by doctor: Yes - Related Data Allergies/Adverse Reactions: No Known Allergies Allergy (Verified 06/21/17 15:09) Past Medical History - Social History Smoking Status: Current Every Day Smoker Cigarette use (# per day): Yes Chew tobacco use (# tins/day): No Smoking Education Provided: No Frequency of alcohol use: None Drug Abuse: None Family History: CAD, CVA, DM, Hyperlipidemia, Hypertension, Malignancy Patient has suicidal ideation: No Patient has homicidal ideation: No - Past Medical History Cardiac Medical History: Reports: Hx Hypertension - Off lisinopril for months. Says she can't afford it despite it being $4 Pulmonary Medical History: Reports: Hx COPD Renal/ Medical History: Reports: Hx Kidney Stones. Denies: Hx Peritoneal Dialysis Musculoskeltal Medical History: Reports Hx Musculoskeletal Trauma Psychiatric Medical History: Reports: Hx Anxiety, Hx Depression Traumatic Medical History: Reports: Hx Fractures - Wrist Past Surgical History: Reports: Hx Appendectomy, Hx Tubal Ligation - Immunizations Hx Diphtheria, Pertussis, Tetanus Vaccination: No Review of Systems - Review of Systems Notes: REVIEW OF SYSTEMS: CONSTITUTIONAL : Denies fever, chills, or sweats. Denies recent illness. EENT: Denies eye, ear, throat, or mouth pain or symptoms. Denies nasal or sinus congestion or discharge. Denies throat, tongue, or mouth swelling or difficulty swallowing. CARDIOVASCULAR: Denies chest pain. Denies palpitations or racing or irregular heart beat. Denies ankle edema. RESPIRATORY: Denies cough, cold, or chest congestion. Denies shortness of breath, difficulty breathing, or wheezing. GASTROINTESTINAL: Denies abdominal pain or distention. Denies nausea, vomiting , or diarrhea. Denies blood in vomitus, stools, or per rectum. Denies black, tarry stools. Denies constipation. GENITOURINARY: Admits to burning in urination FEMALE GENITOURINARY: Denies vaginal bleeding, heavy or abnormal periods, irregular periods. Denies vaginal discharge or odor. MUSCULOSKELETAL: Denies back or neck pain or stiffness. Denies joint pain or swelling. SKIN: Denies rash, lesions or sores. HEMATOLOGIC : Denies easy bruising or bleeding. LYMPHATIC: Denies swollen, enlarged glands. NEUROLOGICAL: Denies confusion or altered mental status. Denies passing out or loss of consciousness. Denies dizziness or lightheadedness. Denies headache. Denies weakness or paralysis or loss of use of either side. Denies problems with gait or speech. Denies sensory loss, numbness, or tingling. Denies seizures. PSYCHIATRIC: Denies anxiety or stress. Denies depression, suicidal ideation, or homicidal ideation. ALL OTHER SYSTEMS REVIEWED AND NEGATIVE. PHYSICAL EXAMINATION: GENERAL: Well-appearing, well-nourished and in no acute distress. HEAD: Atraumatic, normocephalic. EYES: Pupils equal round and reactive to light, extraocular movements intact, conjunctiva are normal. ENT: Nares patent, oropharynx clear without exudates. Moist mucous membranes. NECK: Normal range of motion, supple without lymphadenopathy LUNGS: Breath sounds clear to auscultation bilaterally and equal. No wheezes rales or rhonchi. HEART: Regular rate and rhythm without murmurs ABDOMEN: Soft, nontender, nondistended abdomen. No guarding, no rebound. No masses appreciated. Female : deferred by patient Musculoskeletal: Normal range of motion, no pitting or edema. No cyanosis. NEUROLOGICAL: Cranial nerves grossly intact. Normal speech, normal gait. Normal sensory, motor exams PSYCH: Normal mood, normal affect. SKIN: Warm, Dry, normal turgor, no rashes or lesions noted. Dictation was performed using [employer] voice recognition software Physical Exam - Vital signs Vitals: Temp Pulse Resp BP Pulse Ox 98.7 F 74 18 133/86 H 99 06/21/17 15:13 06/21/17 15:13 06/21/17 15:13 06/21/17 15:13 06/21/17 15:13 Course - Re-evaluation Re-evalutation: 06/21/17 18:34 Lab work noted no significant abnormality 06/21/17 18:[address] Castelan regarding findings and ultrasound report , she evaluated images, does not believe patient needs to be admitted , wants follow up in the office Patient has been made aware of the findings and I have instructed that she follow-up in the office for probable hysterectomy planning After performing a Medical Screening Examination, I estimate there is LOW risk for ACUTE APPENDICITIS, BOWEL OBSTRUCTION, ACUTE CHOLECYSTITIS, PERFORATED DIVERTICULITIS, INCARCERATED HERNIA, PANCREATITIS, PELVIC INFLAMMATORY DISEASE, PERFORATED ULCER, ECTOPIC , or TUBO-OVARIAN ABSCESS, thus I consider the discharge disposition reasonable. Also, there is no evidence or peritonitis , sepsis, or toxicity. I have reevaluated this patient multiple times and no significant life threatening changes are noted. The patient and I have discussed the diagnosis and risks, and we agree with discharging home with close follow-up with the understanding that symptoms and presentations can change. We also discussed returning to the Emergency Department immediately if new or worsening symptoms occur. We have discussed the symptoms which are most concerning (e.g., bloody stool, fever, changing or worsening pain, vomiting) that necessitate immediate return. - Vital Signs Vital signs: Temp Pulse Resp BP Pulse Ox 98.7 F 74 18 133/86 H 99 06/21/17 15:13 06/21/17 15:13 06/21/17 15:13 06/21/17 15:13 06/21/17 15:13 - Laboratory Result Diagrams: 06/21/17 15:45 06/21/17 15:45 Laboratory results interpreted by me: 06/21/17 06/21/17 15:45 15:45 RDW 17.1 H Ur Leukocyte Esterase TRACE H - Diagnostic Test Radiology reviewed: Image reviewed, Reports reviewed - Findings discussed with patient radiologist and HEAT REGULATOR Discharge - Discharge Clinical Impression: Pelvic pain Uterine fibroid Qualifiers: Uterine leiomyoma location: unspecified location Qualified Code(s): D25.9 - Leiomyoma of uterus, unspecified Condition: Stable Disposition: HOME, SELF-CARE Instructions: Pelvic Pain ([facility]) Prescriptions: Hydrocodone/Acetaminophen [[place] 5-325 mg Tablet] 1 tab PO Q6 #14 tablet Referrals: MATT CASTELAN MD [ACTIVE STAFF] - Follow up tomorrow
--- NOTE | 2017-06-21 18:32 | RADIOLOGY REPORT (SQ) ---
EXAM DESCRIPTION: U/S NON OB PEL TV W/DOPPLER COMPLETED DATE/TIME: 06/21/2017 6:14 pm REASON FOR STUDY: pelvic pain, hx of polyp COMPARISON: 01/03/2017 TECHNIQUE: Dynamic and static grayscale images acquired of the pelvis via transvaginal approach and recorded on PACS. Additional selected color Doppler and spectral images recorded. LIMITATIONS: None. FINDINGS: UTERUS: Contour normal. There is somewhat hypoechoic area in the lower uterine segment me asuring 13 x 13 x 11 mm suggestive of a small fibroid. ENDOMETRIAL STRIPE: The endometrium is thickened with a slightly complex appearance. CERVIX: 2.6 cm. No nabothian cysts. RIGHT OVARY: There is a 2.1 x 1.6 x 1.5 cm complex hypoechoic area with peripheral increased blood fl ow. RIGHT OVARY DOPPLER: Normal arterial vascular flow without evidence for torsion. LEFT OVARY: Normal ovary. No masses. LEFT OVARY DOPPLER: Normal arterial vascular flow without evidence for torsion. FREE FLUID: There is a small amount of free fluid. OTHER: No other significant finding. MEASUREMENTS: UTERUS: 7.9 x 4.7 x 4.4 cm. ENDOMETRIAL STRIPE: 1.3 cm. RIGHT OVARY: 2.8 x 1.8 x 1.9 cm. LEFT OVARY: 2.4 x 1.6 x 1.2 cm. IMPRESSION: 1. Small uterine fibroid. 2. Thickened endometrium. Is the patient postmenopausal? 3. Hypoechoic area associated with the right ovary with so called ring of fire blood flow that can b e seen with an ectopic . Correlate clinically. TECHNICAL DOCUMENTATION: JOB ID: [id number] [employer]- All Rights Reserved
[2017-06-21 19:57] VITALS: BP 162/90
== END 2017-06-21 19:56 | disposition home or self-care (01) ==
LOC: ER 15:04
DX: D25.9 Leiomyoma of uterus, unspecified (principal); R10.2 Pelvic and perineal pain; R30.0 Dysuria; J44.9 Chronic obstructive pulmonary disease, unspecified; I10 Essential (primary) hypertension; Z90.49 Acquired absence of other specified parts of digestive tract; Z98.51 Tubal ligation status
CPT/HCPCS: 36415; 76830; 80053; 81001; 81025; 83690; 85025; 93976; 99284

== ENCOUNTER 2017-08-15 22:58 | Emergency (ER) | payer OTHER ==
[2017-08-15 23:07] VITALS: BP 175/87
--- NOTE | 2017-08-16 01:21 | RADIOLOGY REPORT (SQ) ---
EXAM DESCRIPTION: WRIST LEFT 3 VIEWS COMPLETED DATE/TIME: 08/16/2017 1:10 am REASON FOR STUDY: pain s/p injury COMPARISON: None. NUMBER OF VIEWS: Three views. TECHNIQUE: AP, lateral, and oblique radiographic images acquired of the left wrist. LIMITATIONS: None. FINDINGS: MINERALIZATION: Normal. BONES: No acute fracture or dislocation. Normal alignment. Well corticated calcification at the ulna r styloid and deformity of the distal radius are probably due to prior trauma. SOFT TISSUES: No soft tissue swelling. No radiopaque foreign body. IMPRESSION: No radiographic evidence of acute injury. TECHNICAL DOCUMENTATION: JOB ID: [id number] [employer]- All Rights Reserved
[2017-08-16] MEDS ORDERED: OXYCODONE-ACETAMINOPHEN 5-325 MG TABLET PO ONE (01:33)
--- NOTE | 2017-08-16 01:33 | ER Document Report ---
HPI - HPI Patient complains to provider of: left wrist pain Pain Level: 5 Context: Patient is a [id number] 46-year-old female presents emergency department complaining of left wrist pain. Patient states that she is a previous history of fracture of the left wrist that did not get operated on due to issues with insurance when she was living in [place]. This is approximately 12-year-old injury. She states that she has not had any recent injuries, falls, trauma to the site. States that she takes Advil as needed at home for pain but over the past couple of days her pains become more significant. Primary care is Dr. Jones - CONSTITUTIONAL Constitutional: DENIES: Fever, Chills - EENT EENT: DENIES: Sore Throat, Ear Pain, Eye problems - NEURO Neurology: DENIES: Headache, Weakness, Vision blurred, Dizzinesss / Vertigo - CARDIOVASCULAR Cardiovascular: DENIES: Chest pain - RESPIRATORY Respiratory: DENIES: Trouble Breathing, Coughing - GASTROINTESTINAL Gastrointestinal: DENIES: Abdominal Pain, Black / Bloody Stools - URINARY Urinary: DENIES: Dysuria, Urgency, Frequency - REPRODUCTIVE Reproductive: DENIES: : - MUSCULOSKELETAL Musculoskeletal: REPORTS: Extremity pain - L wrist Past Medical History - Social History Smoking Status: Unknown if Ever Smoked Family History: CAD, CVA, DM, Hyperlipidemia, Hypertension, Malignancy Patient has suicidal ideation: No Patient has homicidal ideation: No - Past Medical History Cardiac Medical History: Reports: Hx Hypertension - Off lisinopril for months. Says she can't afford it despite it being $4 Pulmonary Medical History: Reports: Hx COPD Renal/ Medical History: Reports: Hx Kidney Stones. Denies: Hx Peritoneal Dialysis Musculoskeltal Medical History: Reports Hx Musculoskeletal Trauma Psychiatric Medical History: Reports: Hx Anxiety, Hx Depression Traumatic Medical History: Reports: Hx Fractures - Wrist Past Surgical History: Reports: Hx Appendectomy, Hx Tubal Ligation - Immunizations Hx Diphtheria, Pertussis, Tetanus Vaccination: No Vertical Provider Document - CONSTITUTIONAL Agree With Documented VS: Yes Notes: PHYSICAL EXAM GENERAL: Alert, interacts well. HEAD: Normocephalic, atraumatic. EYES: Pupils equal, round, and reactive to light. Extraocular movements intact. ENT: Oral mucosa moist, tongue midline. NECK: Full range of motion. Supple. Trachea midline. LUNGS: Clear to auscultation bilaterally, no wheezes, rales, or rhonchi. No respiratory distress. HEART: Regular rate and rhythm. No murmurs, gallops, or rubs. ABDOMEN: Soft, nondistended, nontender. No guarding, rebound, or rigidity.. Bowel sounds present in all 4 quadrants. EXTREMITIES: Moves all 4 extremities spontaneously. No edema, radial and dorsalis pedis pulses 2/4 bilaterally. No cyanosis. NEUROLOGICAL: Alert and oriented x4. Normal speech. PSYCH: Normal affect, normal mood. SKIN: Warm, dry, normal turgor. No rashes or lesions noted. - INFECTION CONTROL TRAVEL OUTSIDE OF THE [place] IN LAST 30 DAYS: No - RESPIRATORY O2 Sat by Pulse Oximetry: 98 Course - Re-evaluation Re-evalutation: 08/16/17 01:59 Patient is a 46-year-old female presents with nontraumatic acute on chronic left wrist pain. No evidence of new injury on x-ray. Extremity is neurovascularly intact. Patient offered a brace for comfort. Otherwise discussed with her anti-inflammatories for pain and she can follow-up with Dr. Jones. Patient agrees this plan and is stable for discharge home - Vital Signs Vital signs: Temp Pulse Resp BP Pulse Ox 98.3 F 78 18 175/87 H 98 08/15/17 23:05 08/15/17 23:05 08/15/17 23:05 08/15/17 23:05 08/15/17 23:05 - Diagnostic Test Radiology reviewed: Image reviewed, Reports reviewed Discharge - Discharge Clinical Impression: Left wrist pain Condition: Good Disposition: HOME, SELF-CARE Additional Instructions: Please follow-up with your primary care doctor for reevaluation of your complaint today. 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 This can be managed with anti-inflammatories. Otherwise primary care can initiate follow-up with either pain management or physical therapy. Prescriptions: Meloxicam [Mobic] 7.5 mg PO BID #20 tablet Referrals: JUSTIN JONES MD [Primary Care Provider] - Follow up in 1 week
== END 2017-08-16 02:17 | disposition home or self-care (01) ==
LOC: ER 22:58
DX: M25.532 Pain in left wrist (principal)
CPT/HCPCS: 99284; 73110; L3908

== ENCOUNTER 2017-09-01 16:09 | Emergency (ER) | payer OTHER ==
[2017-09-01] MEDS ORDERED: MORPHINE SULFATE 10 MG/ML INJ IV ONE (16:34)
[2017-09-01] MEDS ORDERED: NORMAL SALINE 1000 ML 1,000 ML IV ONE (16:34)
[2017-09-01] MEDS ORDERED: ONDANSETRON HCL INJ/PF 4 MG/2 ML SDV IV ONE (16:34)
--- NOTE | 2017-09-01 16:35 | ER Document Report ---
ED Medical Screen (RME) - General Chief Complaint: Abdominal Pain Stated Complaint: ABDOMINAL PAIN Time Seen by Provider: 09/01/17 16:33 Mode of Arrival: Ambulatory Information source: Patient Notes: Patient states that she has pain in her abdomen just superior to her umbilicus. She states she has been told before that she has a hernia in this area. She states her only previous abdominal surgery was a tubal ligation. She states for several days now she has had bloating and pain in this area with decreased ability to have a bowel movement. She also has burning and nausea. TRAVEL OUTSIDE OF THE U[place] IN LAST 30 DAYS: No - Related Data Allergies/Adverse Reactions: No Known Allergies Allergy (Verified 09/01/17 16:11) Past Medical History - Social History Chew tobacco use (# tins/day): No Frequency of alcohol use: None Drug Abuse: None - Past Medical History Cardiac Medical History: Reports: Hx Hypertension - Off lisinopril for months. Says she can't afford it despite it being $4 Pulmonary Medical History: Reports: Hx COPD Renal/ Medical History: Reports: Hx Kidney Stones. Denies: Hx Peritoneal Dialysis Musculoskeltal Medical History: Reports Hx Musculoskeletal Trauma Psychiatric Medical History: Reports: Hx Anxiety, Hx Depression Traumatic Medical History: Reports: Hx Fractures - Wrist Past Surgical History: Reports: Hx Appendectomy, Hx Tubal Ligation - Immunizations Hx Diphtheria, Pertussis, Tetanus Vaccination: No History of Influenza Vaccine for 06/2017 - 11/2017 Season: No
[2017-09-01 17:17] LABS: APPEARANCE,URINE CLEAR; BILIRUBIN,URINE NEGATIVE (NEGATIVE); GLUCOSE, URINE NEGATIVE (NEGATIVE); KETONES,URINE NEGATIVE (NEGATIVE); LEUKOCYTE ESTERASE,URINE NEGATIVE (NEGATIVE); NITRITE,URINE NEGATIVE (NEGATIVE); PROTEIN,URINE NEGATIVE (NEGATIVE); URINE SPECIFIC GRAVITY 1.008; UROBILINOGEN,URINE NEGATIVE mg/dL (<2.0)
--- NOTE | 2017-09-01 17:21 | ER Document Report ---
ED GI/ - General Chief Complaint: Abdominal Pain Stated Complaint: ABDOMINAL PAIN Time Seen by Provider: 09/01/17 16:33 Mode of Arrival: Ambulatory Notes: 46 years old female with a history of ovarian cysts presents today with upper abdominal pain for the last few days. Associated with nausea, denies any vomiting. Denies any diarrhea or constipation. Denies any fever chills or other constitutional symptoms. TRAVEL OUTSIDE OF THE [place] IN LAST 30 DAYS: No - Related Data Allergies/Adverse Reactions: No Known Allergies Allergy (Verified 09/01/17 16:11) Past Medical History - General Information source: Patient - Social History Smoking Status: Current Every Day Smoker Chew tobacco use (# tins/day): No Frequency of alcohol use: None Drug Abuse: None Family History: CAD, CVA, DM, Hyperlipidemia, Hypertension, Malignancy Patient has suicidal ideation: No Patient has homicidal ideation: No - Past Medical History Cardiac Medical History: Reports: Hx Hypertension - Off lisinopril for months. Says she can't afford it despite it being $4 Pulmonary Medical History: Reports: Hx COPD Renal/ Medical History: Reports: Hx Kidney Stones. Denies: Hx Peritoneal Dialysis Musculoskeltal Medical History: Reports Hx Musculoskeletal Trauma Psychiatric Medical History: Reports: Hx Anxiety, Hx Depression Traumatic Medical History: Reports: Hx Fractures - Wrist Past Surgical History: Reports: Hx Appendectomy, Hx Tubal Ligation - Immunizations Hx Diphtheria, Pertussis, Tetanus Vaccination: No Review of Systems - Review of Systems Notes: REVIEW OF SYSTEMS: CONSTITUTIONAL : Denies fever, chills, or sweats. Denies recent illness. EENT: Denies eye, ear, throat, or mouth pain or symptoms. Denies nasal or sinus congestion or discharge. Denies throat, tongue, or mouth swelling or difficulty swallowing. CARDIOVASCULAR: Denies chest pain. Denies palpitations or racing or irregular heart beat. Denies ankle edema. RESPIRATORY: Denies cough, cold, or chest congestion. Denies shortness of breath, difficulty breathing, or wheezing. GASTROINTESTINAL: . Denies nausea, vomiting, or diarrhea. Denies blood in vomitus, stools, or per rectum. Denies black, tarry stools. Denies constipation. GENITOURINARY: Denies difficulty urinating, painful urination, burning, frequency, blood in urine, or discharge. FEMALE GENITOURINARY: Denies vaginal bleeding, heavy or abnormal periods, irregular periods. Denies vaginal discharge or odor. MUSCULOSKELETAL: Denies back or neck pain or stiffness. Denies joint pain or swelling. SKIN: Denies rash, lesions or sores. HEMATOLOGIC : Denies easy bruising or bleeding. LYMPHATIC: Denies swollen, enlarged glands. NEUROLOGICAL: Denies confusion or altered mental status. Denies passing out or loss of consciousness. Denies dizziness or lightheadedness. Denies headache. Denies weakness or paralysis or loss of use of either side. Denies problems with gait or speech. Denies sensory loss, numbness, or tingling. Denies seizures. PSYCHIATRIC: Denies anxiety or stress. Denies depression, suicidal ideation, or homicidal ideation. ALL OTHER SYSTEMS REVIEWED AND NEGATIVE. PHYSICAL EXAMINATION: GENERAL: Well-appearing, well-nourished and in no acute distress. HEAD: Atraumatic, normocephalic. EYES: Pupils equal round and reactive to light, extraocular movements intact, conjunctiva are normal. ENT: Nares patent, oropharynx clear without exudates. Moist mucous membranes. NECK: Normal range of motion, supple without lymphadenopathy LUNGS: Breath sounds clear to auscultation bilaterally and equal. No wheezes rales or rhonchi. HEART: Regular rate and rhythm without murmurs ABDOMEN: Soft, tenderness over the left upper quadrant, right side of the abdomen, no rebound tenderness or guarding. Positive bowel sounds in all 4 quadrants. Nondistended abdomen. No guarding, no rebound. No masses appreciated. Female : deferred Musculoskeletal: Normal range of motion, no pitting or edema. No cyanosis. NEUROLOGICAL: Cranial nerves grossly intact. Normal speech, normal gait. Normal sensory, motor exams PSYCH: Normal mood, normal affect. SKIN: Warm, Dry, normal turgor, no rashes or lesions noted. Has tinea corporis over the left upper shoulder region Dictation was performed using [employer] voice recognition software Course - Re-evaluation Re-evalutation: 09/01/17 20:13 Lab reports were explained to the patient, the reason for the abdominal pain is GERD - Laboratory Result Diagrams: 09/01/17 16:57 09/01/17 16:57 Laboratory results interpreted by me: 09/01/17 09/01/17 16:57 16:57 RDW 16.0 H Total Bilirubin < 0.1 L - Diagnostic Test Radiology results interpreted by me: 09/01/17 20:12 CT of the abdomen reported by radiologist was reviewed, negative finding. Discharge - Discharge Clinical Impression: GERD with esophagitis Abdominal pain Qualifiers: Abdominal location: epigastric Qualified Code(s): R10.13 - Epigastric pain Condition: Good Disposition: HOME, SELF-CARE Instructions: Abdominal Pain ([facility]), Antacid Therapy ([facility]), Esophagitis ([facility]) Prescriptions: Pantoprazole Sodium [Protonix] 40 mg PO DAILY #30 tablet. Sucralfate [Carafate 1 gm Tablet] 1 gm PO ACHS #120 tablet
[2017-09-01 17:24] LABS: ABSOLUTE BASOPHILS # (AUTO) 0.1 10^3/uL (0.0-0.2); ABSOLUTE EOSINOPHILS # (AUTO) 0.1 10^3/uL (0.0-0.6); ABSOLUTE LYMPHOCYTES (AUTO) 2.5 10^3/uL (0.5-4.7); ABSOLUTE MONOCYTES (AUTO) 0.6 10^3/uL (0.1-1.4); ABSOLUTE NEUT (AUTO) 6.3 10^3/uL (1.7-8.2); BASOPHILS % (AUTO) 0.6 % (0-2); EOSINOPHILS % (AUTO) 1.4 % (0-6); HEMOGLOBIN 12.3 g/dL (12.0-15.5); HGB HCT DIFFERENCE 0.9; LYMPHOCYTES % (AUTO) 26.1 % (13-45); MEAN CORPUSCULAR HEMOGLOBIN 28.1 pg (27.0-33.4); MEAN CORPUSCULAR HGB CONC 34.3 g/dL (32.0-36.0); MEAN CORPUSCULAR VOLUME 82 fl (80-97); MONOCYTES % (AUTO) 6.7 % (3-13); RED BLOOD COUNT 4.39 10^6/uL (3.72-5.28); SEGMENTED NEUTROPHILS % (AUTO) 65.2 % (42-78); WHITE BLOOD COUNT 9.7 10^3/uL (4.0-10.5)
[2017-09-01 17:38] LABS: ALANINE AMINOTRANSFERASE 29 U/L (9-52); ALBUMIN 4.3 g/dL (3.5-5.0); ALKALINE PHOSPHATASE 86 U/L (38-126); ANION GAP 12 (5-19); ASPARTATE AMINO TRANSFERASE 16 U/L (14-36); BLOOD UREA NITROGEN 13 mg/dL (7-20); CALCIUM 9.4 mg/dL (8.4-10.2); CARBON DIOXIDE 25 mmol/L (22-30); CHLORIDE 105 mmol/L (98-107); CREATININE RESULT 0.66 mg/dL (0.52-1.25); GLUCOSE 79 mg/dL (75-110); LIPASE 178.2 U/L (23-300); POTASSIUM 4.2 mmol/L (3.6-5.0); SODIUM 141.8 mmol/L (137-145); TOTAL PROTEIN 6.9 g/dL (6.3-8.2)
[2017-09-01 17:41] LABS: BILIRUBIN,TOTAL < 0.1 mg/dL (0.2-1.3)
--- NOTE | 2017-09-01 17:52 | RADIOLOGY REPORT (SQ) ---
EXAM DESCRIPTION: CT ABD/PELVIS NO ORAL OR IV COMPLETED DATE/TIME: 09/01/2017 5:30 pm REASON FOR STUDY: Abdominal pain, ovarian cyst COMPARISON: 04/22/2016 TECHNIQUE: CT scan of the abdomen and pelvis performed without intravenous or oral contrast. Images reviewed with lung, soft tissue, and bone windows. Reconstructed coronal and sagittal MPR images revi ewed. All images stored on PACS. All CT scanners at this facility use dose modulation, iterative reconstruction, and/or weight based d osing when appropriate to reduce radiation dose to as low as reasonably achievable (ALARA). [facility]: Dose Right [facility]: CareDose [facility]: Dose Right [facility]: Teradose 4D [facility]: [employer] RADIATION DOSE: CT Rad equipment meets quality standard of care and radiation dose reduction techniq ues were employed. CTDIvol: 4.8 mGy. DLP: 214 mGy-cm.mGy. LIMITATIONS: None. FINDINGS: LOWER CHEST: No significant findings. No nodules or infiltrates. NON-CONTRASTED LIVER, SPLEEN, ADRENALS: Evaluation limited by lack of IV contrast. No identified sign ificant masses. PANCREAS: No masses. No peripancreatic inflammatory changes. GALLBLADDER: No identified stones by CT criteria. No inflammatory changes to suggest cholecystitis. RIGHT KIDNEY AND URETER: Stable appearance of the presumed cyst. . No significant calcifications. No hydronephrosis or hydroureter. LEFT KIDNEY AND URETER: No suspicious masses. Assessment limited by lack of IV contrast. No signifi cant calcifications. No hydronephrosis or hydroureter. AORTA AND RETROPERITONEUM: No aneurysm. No retroperitoneal masses or adenopathy. BOWEL AND PERITONEAL CAVITY: No obvious masses or inflammatory changes. No free fluid. APPENDIX: Surgically absent. PELVIS, BLADDER, AND ABDOMINAL WALL:No abnormal masses. No free fluid. Bladder normal. BONES: No significant findings. OTHER: No other significant finding. IMPRESSION: NO SIGNIFICANT OR ACUTE PROCESS IN THE ABDOMEN OR PELVIS. COMMENT: Quality ID # [id number]: Final reports with documentation of one or more dose reduction techniques (e.g., Automated exposure control, adjustment of the mA and/or kV according to patient size, use of iterative reconstruction technique) TECHNICAL DOCUMENTATION: JOB ID: [id number] [employer]- All Rights Reserved
[2017-09-01 20:32] VITALS: BP 189/95
== END 2017-09-01 20:26 | disposition home or self-care (01) ==
LOC: ER 16:09
DX: K21.0 Gastro-esophageal reflux disease with esophagitis (principal); R11.0 Nausea; B35.4 Tinea corporis; R10.13 Epigastric pain; F17.200 Nicotine dependence, unspecified, uncomplicated; I10 Essential (primary) hypertension; J44.9 Chronic obstructive pulmonary disease, unspecified; Z87.442 Personal history of urinary calculi; Z90.49 Acquired absence of other specified parts of digestive tract; Z98.51 Tubal ligation status; Z87.42 Personal history of other diseases of the female genital tract
CPT/HCPCS: 99284; 96361; 96374; 96375; 36415; 83690; 85025; 81025; 80053; 81001; 74176; J2270; J2405; J7030

== ENCOUNTER 2017-10-14 15:44 | Emergency (ER) | payer OTHER ==
[2017-10-14] MEDS ORDERED: IBUPROFEN 600 MG TABLET PO ONE (17:03)
--- NOTE | 2017-10-14 17:07 | ER Document Report ---
ED Respiratory Problem - General Chief Complaint: Rib Pain Stated Complaint: CHEST PAIN, DIFFICULTY BREATHING Time Seen by Provider: 10/14/17 16:40 Mode of Arrival: Ambulatory Information source: Patient TRAVEL OUTSIDE OF THE [place] IN LAST 30 DAYS: No - HPI Patient complains to provider of: Cough, Hurts to breath Notes: Patient arrives with complaints of right-sided chest pain. She states that she believes she had influenza within the last week she had had cough body aches and fever. She states that the fever and the body aches have resolved but for the last few days she has had right-sided chest pain. She states that the pain hurts with touching her ribs as well as coughing or taking a deep breath. She denies any shortness of breath. She does reports that it hurts to take a deep breath. She denies any nausea, vomiting, diarrhea. She denies abdominal pain. She denies rash. She denies injuries. She is on blood thinning medications. She denies any recent long trips or surgeries, she denies any leg pain or leg swelling, she denies any history of cancer, no history of DVT or PE, she is not on hormones. She is a smoker, but states that she has not smoked for the last week. She has a history of hypertension, but denies history of high cholesterol , diabetes, CAD. She takes lisinopril but no other medications. She denies any other complaints at this time. - Related Data Allergies/Adverse Reactions: No Known Allergies Allergy (Verified 10/14/17 15:51) Past Medical History - Social History Smoking Status: Current Every Day Smoker Family History: CAD, CVA, DM, Hyperlipidemia, Hypertension, Malignancy - Past Medical History Cardiac Medical History: Reports: Hx Hypertension - Off lisinopril for months. Says she can't afford it despite it being $4 Pulmonary Medical History: Reports: Hx COPD Renal/ Medical History: Reports: Hx Kidney Stones. Denies: Hx Peritoneal Dialysis Musculoskeltal Medical History: Reports Hx Musculoskeletal Trauma Psychiatric Medical History: Reports: Hx Anxiety, Hx Depression Traumatic Medical History: Reports: Hx Fractures - Wrist Past Surgical History: Reports: Hx Appendectomy, Hx Tubal Ligation - Immunizations Hx Diphtheria, Pertussis, Tetanus Vaccination: No Review of Systems - Review of Systems -: Yes All other systems reviewed and negative Physical Exam - Vital signs Vitals: Temp Pulse BP Pulse Ox 98.6 F 83 140/73 H 97 10/14/17 16:12 10/14/17 16:12 10/14/17 16:12 10/14/17 16:12 - Notes Notes: GENERAL: alert, cooperative, nontoxic, no distress. HEAD: normocephalic, atraumatic EYES: conjunctiva pink without discharge, no external redness or swelling. EARS: no external swelling, no external redness, no mastoid redness, swelling, tenderness. Ear canals are clear without swelling or drainage. TMs pearly monk , no redness, no bulging, normal landmarks, no perforation. NOSE: atraumatic, no external swelling. clear rhinorrhea noted. MOUTH/THROAT: mucous membranes moist and pink, posterior pharynx without erythema, swelling, exudate. No trismus or drooling. NECK: soft, supple, full range of motion, no meningismus. CHEST: no distress, lungs clear and equal throughout. No wheezing, rales, rhonchi. Tenderness to palpation of the right posterior lateral and anterior chest wall. No crepitus. No bruising. No rash. ABDO: No tenderness to palpation. Soft, no rebound tenderness or guarding. CARDIAC: regular rate and rhythm, no murmur, normal capillary refill, normal pulses. No peripheral edema noted. BACK: full range of motion, no CVA tenderness. EXTREMITIES: full range of motion of all extremities. No redness, no swelling. NEURO: alert and oriented A&O3, no focal deficits, full range of motion of all extremities. PYSCH: appropriate mood, affect. Patient is cooperative. SKIN: pink, warm, dry, no rash. Course - Re-evaluation Re-evalutation: 10/14/17 17:06 Patient is PERC rule negative for PE, PE is very unlikely in this patient, therefore no further evaluation is required for ruling out PE. Patient has had a cough for the last week and now has reproducible right-sided chest wall tenderness to palpation it is worse with deep breaths and cough. This seems to be most likely chest wall in nature although pneumonia is another possibility. The pain does not appear to be consistent with ACS. I offered EKG and blood work to further evaluate her right-sided reproducible chest pain, but the patient declined at this time. She would prefer to see what her chest x-ray shows she thinks that this is either a pulled muscle in her chest or possibly pneumonia. 10/14/17 17:26 The patient is nontoxic appearing with stable vitals. She had a cough for about a week and is now having right-sided chest wall pain when coughing or taking deep breaths. The pain is also worse with palpation. Patient had an x- ray showing no acute abnormality per the radiologist. This is most likely secondary to chest wall strain from her frequent cough. Again the patient has no PE risk factors and is PERC rule negative. I offered to perform a cardiac workup on the patient, but she declined at this time. I believe this is reasonable due to the fact that she has had a recent cough and her pain is completely reproducible with palpation as well as cough and deep breath. She will be discharged home with a prescription for Naprosyn and Hycodan. Instructions to follow-up with her primary care doctor if not better in 5-7 days. She was instructed to return the emergency department immediately if she develops worsening pain, high fever, difficulty breathing, or any further concerns. The patient is noted to have elevated blood pressure during today's emergency department visit. The patient was informed of this finding. The patient was instructed that this may be related to pre-hypertension and requires further evaluation with a primary care provider. The patient has no hypertensive symptoms at this time. The patient's emergency department workup and current diagnosis were explained to the patient and or family. Follow-up instructions were provided. Medications if prescribed were discussed. Instructions for when to return to the emergency department including specific worrisome symptoms were discussed with the patient and/or family. - Vital Signs Vital signs: Temp Pulse Resp BP Pulse Ox 98.6 F 83 140/73 H 97 10/14/17 16:12 10/14/17 16:12 10/14/17 16:12 10/14/17 16:12 - Diagnostic Test Radiology reviewed: Image reviewed, Reports reviewed - No acute abnormality of the chest Discharge - Discharge Clinical Impression: Cough Chest wall muscle strain Qualifiers: Encounter type: initial encounter Qualified Code(s): S29.011A - Strain of muscle and tendon of front wall of thorax, initial encounter Condition: Stable Disposition: HOME, SELF-CARE Instructions: Influenza ([facility]), Chest Wall Pain ([facility]) Additional Instructions: Take medications as prescribed. Stop smoking. Follow-up with your doctor if not improved in the next 5-7 days, sooner for increasing pain, high fever, difficulty breathing, persistent vomiting, or for any further concerns. Your blood pressure was elevated during today's visit. Have this rechecked with your doctor. The medication you were prescribed today may cause drowsiness. Do not drive or operate heavy machinery while taking this medication. Prescriptions: Hydrocodone Bit/Homatropine [Hycodan Syrup 5-1.5 mg/5 ml Ud Cup] 5 ml PO Q4HP PRN #60 ml PRN Reason: Naproxen [Naprosyn] 500 mg PO BID #20 tablet Forms: Elevated Blood Pressure, Smoking Cessation Education Referrals: JUSTIN AYALA MD [Primary Care Provider] - Follow up as needed
--- NOTE | 2017-10-14 17:09 | RADIOLOGY REPORT (SQ) ---
EXAM DESCRIPTION: CHEST PA/LAT COMPLETED DATE/TIME: 10/14/2017 4:52 pm REASON FOR STUDY: right chest pain with cough, recent flu COMPARISON: 04/29/2016 EXAM PARAMETERS: NUMBER OF VIEWS: two views TECHNIQUE: Digital Frontal and Lateral radiographic views of the chest acquired. RADIATION DOSE: NA LIMITATIONS: none FINDINGS: LUNGS AND PLEURA: No opacities, masses or pneumothorax. No pleural effusion. MEDIASTINUM AND HILAR STRUCTURES: No masses or contour abnormalities. HEART AND VASCULAR STRUCTURES: Heart normal size. No evidence for failure. BONES: No acute findings. HARDWARE: None in the chest. OTHER: No other significant finding. IMPRESSION: NO SIGNIFICANT RADIOGRAPHIC FINDING IN THE CHEST. TECHNICAL DOCUMENTATION: JOB ID: [id number] [employer]- All Rights Reserved
[2017-10-14 17:45] VITALS: BP 133/80
== END 2017-10-14 17:44 | disposition home or self-care (01) ==
LOC: ER 15:44
DX: S29.011A Strain of muscle and tendon of front wall of thorax, initial encounter (principal); X58.XXXA Exposure to other specified factors, initial encounter; R05 Cough; F17.200 Nicotine dependence, unspecified, uncomplicated; I10 Essential (primary) hypertension; J44.9 Chronic obstructive pulmonary disease, unspecified; Z87.442 Personal history of urinary calculi; Z98.51 Tubal ligation status
CPT/HCPCS: 71046; 99283

== ENCOUNTER 2017-12-15 15:09 | Emergency (ER) | payer OTHER ==
[2017-12-15] MEDS ORDERED: ONDANSETRON 4 MG TAB.RAPDIS PO ONE (15:59)
[2017-12-15] MEDS ORDERED: OXYCODONE-ACETAMINOPHEN 5-325 MG TABLET PO ONE (15:59)
--- NOTE | 2017-12-15 16:01 | ER Document Report ---
ED Medical Screen (RME) - General Chief Complaint: Abdominal Pain Stated Complaint: LIP SWELLING/FLANK PAIN Time Seen by Provider: 12/15/17 15:49 Notes: 47-year-old female to the emergency department complaining of blisters on her lips as well as right upper quadrant and right flank abdominal pain. Nausea and vomiting. I have greeted and performed a rapid initial assessment of this patient. A comprehensive ED assessment and evaluation of the patient, analysis of test results and completion of the medical decision making process will be conducted by additional ED providers. TRAVEL OUTSIDE OF THE [place] IN LAST 30 DAYS: No - Related Data Allergies/Adverse Reactions: No Known Allergies Allergy (Verified 12/15/17 15:10) Past Medical History - Social History Chew tobacco use (# tins/day): No Frequency of alcohol use: None Drug Abuse: None - Past Medical History Cardiac Medical History: Reports: Hx Hypertension - Off lisinopril for months. Says she can't afford it despite it being $4 Pulmonary Medical History: Reports: Hx COPD Renal/ Medical History: Reports: Hx Kidney Stones. Denies: Hx Peritoneal Dialysis Musculoskeltal Medical History: Reports Hx Musculoskeletal Trauma Psychiatric Medical History: Reports: Hx Anxiety, Hx Depression Traumatic Medical History: Reports: Hx Fractures - Wrist Past Surgical History: Reports: Hx Appendectomy, Hx Tubal Ligation - Immunizations Hx Diphtheria, Pertussis, Tetanus Vaccination: No History of Influenza Vaccine for 06/2017 - 11/2017 Season: No Physical Exam - Vital signs Vitals: Temp Pulse Resp BP Pulse Ox 98.7 F 81 20 190/106 H 98 12/15/17 15:13 12/15/17 15:13 12/15/17 15:13 12/15/17 15:13 12/15/17 15:13 Course - Vital Signs Vital signs: Temp Pulse Resp BP Pulse Ox 98.7 F 81 20 190/106 H 98 12/15/17 15:13 12/15/17 15:13 12/15/17 15:13 12/15/17 15:13 12/15/17 15:13
[2017-12-15 16:40] LABS: APPEARANCE,URINE CLEAR; BILIRUBIN,URINE NEGATIVE (NEGATIVE); COLOR,URINE COLORLESS; GLUCOSE, URINE NEGATIVE (NEGATIVE); KETONES,URINE 25 mg/dL (NEGATIVE); URINE SPECIFIC GRAVITY 1.007
[2017-12-15 16:41] LABS: LEUKOCYTE ESTERASE,URINE NEGATIVE (NEGATIVE); NITRITE,URINE NEGATIVE (NEGATIVE); PROTEIN,URINE NEGATIVE (NEGATIVE); UROBILINOGEN,URINE NEGATIVE mg/dL (<2.0)
[2017-12-15 16:59] LABS: ABSOLUTE EOSINOPHILS # (AUTO) 0.1 10^3/uL (0.0-0.6); ABSOLUTE LYMPHOCYTES (AUTO) 2.4 10^3/uL (0.5-4.7); ABSOLUTE MONOCYTES (AUTO) 0.7 10^3/uL (0.1-1.4); ABSOLUTE NEUT (AUTO) 8.3 10^3/uL (1.7-8.2); BASOPHILS % (AUTO) 0.3 % (0-2); EOSINOPHILS % (AUTO) 0.7 % (0-6); HEMATOCRIT 40.5 % (36.0-47.0); HEMOGLOBIN 13.3 g/dL (12.0-15.5); LYMPHOCYTES % (AUTO) 21.2 % (13-45); MEAN CORPUSCULAR HEMOGLOBIN 26.5 pg (27.0-33.4); MEAN CORPUSCULAR HGB CONC 32.8 g/dL (32.0-36.0); MEAN CORPUSCULAR VOLUME 81 fl (80-97); MONOCYTES % (AUTO) 6.2 % (3-13); PLATELET COUNT 292 10^3/uL (150-450); RED CELL DISTRIBUTION WIDTH 18.8 % (11.5-14.0); SEGMENTED NEUTROPHILS % (AUTO) 71.6 % (42-78); TOTAL CELLS COUNTED % (AUTO) 100 %; WHITE BLOOD COUNT 11.5 10^3/uL (4.0-10.5)
[2017-12-15 17:18] LABS: ALANINE AMINOTRANSFERASE 22 U/L (9-52); ALBUMIN 4.7 g/dL (3.5-5.0); ALKALINE PHOSPHATASE 79 U/L (38-126); ANION GAP 12 (5-19); ASPARTATE AMINO TRANSFERASE 19 U/L (14-36); BILIRUBIN,DIRECT 0.1 mg/dL (0.0-0.4); BILIRUBIN,TOTAL 0.4 mg/dL (0.2-1.3); BLOOD UREA NITROGEN 3 mg/dL (7-20); CALCIUM 10.2 mg/dL (8.4-10.2); CARBON DIOXIDE 27 mmol/L (22-30); CHLORIDE 102 mmol/L (98-107); GLUCOSE 90 mg/dL (75-110); LIPASE 142.9 U/L (23-300); POTASSIUM 3.5 mmol/L (3.6-5.0); SODIUM 141.1 mmol/L (137-145); TOTAL PROTEIN 7.6 g/dL (6.3-8.2)
[2017-12-15] MEDS ORDERED: CLONIDINE HCL 0.1 MG TABLET PO ONE (19:03)
[2017-12-15] MEDS ORDERED: CYCLOBENZAPRINE HCL 10 MG TABLET PO ONE (19:03)
[2017-12-15] MEDS ORDERED: KETOROLAC TROMETHAMINE INJ/PF 30 MG/1 ML SDV IV ONE (19:03)
--- NOTE | 2017-12-15 19:03 | ER Document Report ---
ED GI/ - General Chief Complaint: Abdominal Pain Stated Complaint: LIP SWELLING/FLANK PAIN Time Seen by Provider: 12/15/17 15:49 Mode of Arrival: Ambulatory Information source: Patient Notes: History of complain 47 years old_female presents today with right flank pain, right side of the abdominal pain, including right upper quadrant. This is been going on for the last several days. Increase in intensity recently. Each time she moves around turns increases the pain. Not associated with any nausea vomiting, or eating any food. Denies any diarrhea or constipation. Denies any dysuria frequency urgency. Denies any fever chills or other constitutional symptoms. She states she has been evaluated for this before. REVIEW OF SYSTEMS: CONSTITUTIONAL : Denies fever, chills, or sweats. Denies recent illness. EENT: Denies eye, ear, throat, or mouth pain or symptoms. Denies nasal or sinus congestion or discharge. Denies throat, tongue, or mouth swelling or difficulty swallowing. CARDIOVASCULAR: Denies chest pain. Denies palpitations or racing or irregular heart beat. Denies ankle edema. RESPIRATORY: Denies cough, cold, or chest congestion. Denies shortness of breath, difficulty breathing, or wheezing. GASTROINTESTINAL: n. Denies nausea, vomiting, or diarrhea. Denies blood in vomitus, stools, or per rectum. Denies black, tarry stools. Denies constipation. GENITOURINARY: Denies difficulty urinating, painful urination, burning, frequency, blood in urine, or discharge. FEMALE GENITOURINARY: Denies vaginal bleeding, heavy or abnormal periods, irregular periods. Denies vaginal discharge or odor. MUSCULOSKELETAL: Denies back or neck pain or stiffness. Denies joint pain or swelling. SKIN: Denies rash, lesions or sores. HEMATOLOGIC : Denies easy bruising or bleeding. LYMPHATIC: Denies swollen, enlarged glands. NEUROLOGICAL: Denies confusion or altered mental status. Denies passing out or loss of consciousness. Denies dizziness or lightheadedness. Denies headache. Denies weakness or paralysis or loss of use of either side. Denies problems with gait or speech. Denies sensory loss, numbness, or tingling. Denies seizures. PSYCHIATRIC: Denies anxiety or stress. Denies depression, suicidal ideation, or homicidal ideation. ALL OTHER SYSTEMS REVIEWED AND NEGATIVE. PHYSICAL EXAMINATION: GENERAL: Well-appearing, well-nourished and in no acute distress. HEAD: Atraumatic, normocephalic. EYES: Pupils equal round and reactive to light, extraocular movements intact, conjunctiva are normal. ENT: Nares patent, oropharynx clear without exudates. Moist mucous membranes. NECK: Normal range of motion, supple without lymphadenopathy LUNGS: Breath sounds clear to auscultation bilaterally and equal. No wheezes rales or rhonchi. HEART: Regular rate and rhythm without murmurs ABDOMEN: Soft, tenderness on palpation no noted over the right of the abdomen as well as right upper quadrant as well as epigastric region. No rebound tenderness or guarding. She also had tenderness over the right flank including paraspinal muscles. No guarding, no rebound. No masses appreciated. Female : deferred Musculoskeletal: Normal range of motion, no pitting or edema. No cyanosis. NEUROLOGICAL: Cranial nerves grossly intact. Normal speech, normal gait. Normal sensory, motor exams PSYCH: Normal mood, normal affect. SKIN: Warm, Dry, normal turgor, no rashes or lesions noted. Dictation was performed using [employer] voice recognition software TRAVEL OUTSIDE OF THE [place] IN LAST 30 DAYS: No - Related Data Allergies/Adverse Reactions: No Known Allergies Allergy (Verified 12/15/17 15:10) Past Medical History - Social History Smoking Status: Current Some Day Smoker Chew tobacco use (# tins/day): No Frequency of alcohol use: None Drug Abuse: None Family History: CAD, CVA, DM, Hyperlipidemia, Hypertension, Malignancy Patient has suicidal ideation: No Patient has homicidal ideation: No - Past Medical History Cardiac Medical History: Reports: Hx Hypertension - Off lisinopril for months. Says she can't afford it despite it being $4 Pulmonary Medical History: Reports: Hx COPD Renal/ Medical History: Reports: Hx Kidney Stones. Denies: Hx Peritoneal Dialysis Musculoskeltal Medical History: Reports Hx Musculoskeletal Trauma Psychiatric Medical History: Reports: Hx Anxiety, Hx Depression Traumatic Medical History: Reports: Hx Fractures - Wrist Past Surgical History: Reports: Hx Appendectomy, Hx Tubal Ligation - Immunizations Hx Diphtheria, Pertussis, Tetanus Vaccination: No Physical Exam - Vital signs Vitals: Temp Pulse Resp BP Pulse Ox 98.7 F 81 20 190/106 H 98 12/15/17 15:13 12/15/17 15:13 12/15/17 15:13 12/15/17 15:13 12/15/17 15:13 Course - Re-evaluation Re-evalutation: 12/16/17 01:33 Patient remained calm and sleepy without any discomfort. - Vital Signs Vital signs: Temp Pulse Resp BP Pulse Ox 98.4 F 81 16 117/65 99 12/15/17 19:05 12/15/17 15:13 12/15/17 20:31 12/15/17 20:31 12/15/17 20:31 - Laboratory Result Diagrams: 12/15/17 16:40 12/15/17 16:40 Laboratory results interpreted by me: 12/15/17 12/15/17 12/15/17 15:40 16:40 16:40 WBC 11.5 H MCH 26.5 L RDW 18.8 H Absolute Neutrophils 8.3 H Potassium 3.5 L BUN 3 L Creatinine 0.50 L Urine Ketones 25 H Urine Blood LARGE H - Diagnostic Test Radiology reviewed: Reports reviewed - 1. Ultrasound of the gallbladder came back negative for cholecystitis 2. CT of the abdomen reported by radiologist as negative no acute finding Discharge - Discharge Clinical Impression: Abdominal pain Qualifiers: Abdominal location: right upper quadrant Qualified Code(s): R10.11 - Right upper quadrant pain Hematuria Qualifiers: Hematuria type: other microscopic Qualified Code(s): R31.29 - Other microscopic hematuria; R31.2 - Other microscopic hematuria UTI (urinary tract infection) Qualifiers: Urinary tract infection type: acute cystitis Hematuria presence: with hematuria Qualified Code(s): N30.01 - Acute cystitis with hematuria Condition: Fair Disposition: HOME, SELF-CARE Instructions: Abdominal Pain ([facility]), Urinary Tract Infection ([facility]) Prescriptions: Ketorolac Tromethamine [Toradol 10 mg Tablet] 10 mg PO Q8HP PRN #14 tablet PRN Reason: Ciprofloxacin HCl [Cipro 500 mg Tablet] 500 mg PO BID #20 tablet
[2017-12-15] MEDS ORDERED: KETOROLAC TROMETHAMINE 60 MG/2 ML SDV IM ONE (19:12)
--- NOTE | 2017-12-15 21:07 | RADIOLOGY REPORT (SQ) ---
EXAM DESCRIPTION: U/S ABDOMEN LIMITED W/O DOP COMPLETED DATE/TIME: 12/15/2017 6:59 pm REASON FOR STUDY: Right upper quadrant pain COMPARISON: 06/14/2017 TECHNIQUE: Dynamic and static grayscale images acquired of the abdomen and recorded on PACS. Niro carri selected color Doppler and spectral images recorded. LIMITATIONS: None. FINDINGS: PANCREAS: No masses. Visualized pancreatic duct normal caliber. LIVER: 13 cm. Normal echotexture. LIVER VASCULATURE: Normal directional flow of the main portal vein and hepatic veins. GALLBLADDER: No stones are seen. Wall thickness is normal. There were some gallbladder polyps. ULTRASOUND-DETECTED CHARLES'S SIGN: Posterior INTRAHEPATIC DUCTS AND COMMON DUCT: CBD and intrahepatic ducts normal caliber. No filling defects. INFERIOR VENA CAVA: Not well seen. AORTA: No aneurysm. RIGHT KIDNEY: Normal size, 10.1 cm. Normal echogenicity. No solid or suspicious masses. Small cyst. No hydronephrosis. No calcifications. PERITONEAL AND RIGHT PLEURAL SPACE: No ascites or effusions. OTHER: No other significant findings. IMPRESSION: Gallbladder polyps was seen and there was a positive ultrasound detected Charles sign. N o gallstones are seen. There is no evidence of acute cholecystitis. TECHNICAL DOCUMENTATION: JOB ID: [id number] [employer]- All Rights Reserved Reading location - IP/workstation name: [email or web address]
--- NOTE | 2017-12-16 00:45 | RADIOLOGY REPORT (SQ) ---
EXAM DESCRIPTION: CT ABD/PELVIS NO ORAL OR IV CLINICAL HISTORY: 47 years Female, Hematuria, rule out kidney stone, flank pain COMPARISON: CT, 09/01/2017, 05/06/2017, report only. Ultrasound, 12/15/2017, 04/22/2016. TECHNIQUE: No contrast. Coronal and sagittal reformat. This exam was performed according to our departmental dose-optimization program, which includes automated exposure control, adjustment of the mA and/or kV according to patient size and/or use of iterative reconstruction technique. FINDINGS: No acute findings. Likely benign 2.2 cm, 11HU right renal low-attenuation lesion consistent with prior exams including prior ultrasound report 04/22/2016, not definitively characterized on today's exam. Atherosclerosis. Small bibasilar atelectasis or scar. Unenhanced inferior chest, abdominopelvic structures, and musculoskeleton appear otherwise grossly unremarkable. Impression: No acute findings.
[2017-12-16 02:10] VITALS: BP 129/86
== END 2017-12-16 02:12 | disposition home or self-care (01) ==
LOC: ER 15:09
DX: N30.01 Acute cystitis with hematuria (principal); R10.11 Right upper quadrant pain; R10.13 Epigastric pain; I10 Essential (primary) hypertension; J44.9 Chronic obstructive pulmonary disease, unspecified; F17.200 Nicotine dependence, unspecified, uncomplicated; Z87.442 Personal history of urinary calculi; Z90.49 Acquired absence of other specified parts of digestive tract
CPT/HCPCS: 99284; 96372; 36415; 83690; 85025; 80053; 81001; 76705; 74176; J1885; S0119

== ENCOUNTER 2017-12-23 17:34 | Emergency (ER) | payer OTHER ==
[2017-12-23] MEDS ORDERED: AMOXICILLIN TR/POT CLAVULANATE 500-125 MG TAB PO ONE (17:58)
--- NOTE | 2017-12-23 18:11 | ER Document Report ---
ED Animal Bite - General Chief Complaint: Dog Bite Stated Complaint: DOG BITE/POSSIBLE RASH Time Seen by Provider: 12/23/17 17:48 Mode of Arrival: Ambulatory Information source: Patient TRAVEL OUTSIDE OF THE [place] IN LAST 30 DAYS: No - HPI Patient complains to provider of: right finger dog bite Severity of injury: Bitten Onset: Other - 2 days Animal's immunizations: Unknown Notes: Patient is here with complaints of dog bite to right middle fingertip which occurred 2 days ago. She states that her neighbor has multiple dogs and there is a hole in the fence. The dog puts head through the fence and bit her right finger. She states that they are unsure if the dog's immunizations are up-to- date, but the dog is currently quarantined and under watch by animal control per her report. Patient states she has some pain to the right fingertip. No significant redness. She denies any numbness, tingling, weakness. She denies any chest pain or shortness of breath. She denies any vomiting or diarrhea. The patient's tetanus is up-to-date as of 2 years ago. Patient states that today she started to get very itchy on her arms thought she had some hives and now she has some excoriated areas that are burning where she scratched. She denies any rash currently. The rash was only associated with the dorsums of her hands or forearms, no truncal rash, no leg rash. - Related Data Allergies/Adverse Reactions: No Known Allergies Allergy (Verified 12/23/17 17:38) Past Medical History - Social History Smoking Status: Current Every Day Smoker Family History: CAD, CVA, DM, Hyperlipidemia, Hypertension, Malignancy - Past Medical History Cardiac Medical History: Reports: Hx Hypertension - Off lisinopril for months. Says she can't afford it despite it being $4 Pulmonary Medical History: Reports: Hx COPD Renal/ Medical History: Reports: Hx Kidney Stones. Denies: Hx Peritoneal Dialysis Musculoskeltal Medical History: Reports Hx Musculoskeletal Trauma Psychiatric Medical History: Reports: Hx Anxiety, Hx Depression Traumatic Medical History: Reports: Hx Fractures - Wrist Past Surgical History: Reports: Hx Appendectomy, Hx Tubal Ligation - Immunizations Hx Diphtheria, Pertussis, Tetanus Vaccination: No Review of Systems - Review of Systems -: Yes All other systems reviewed and negative Physical Exam - Vital signs Vitals: Temp Pulse Resp BP Pulse Ox 98.1 F 102 H 16 172/87 H 97 12/23/17 17:39 12/23/17 17:39 12/23/17 17:39 12/23/17 17:39 12/23/17 17:39 - Notes Notes: GENERAL: alert, cooperative, nontoxic, no distress. HEAD: normocephalic, atraumatic EYES: conjunctiva pink without discharge, no external redness or swelling. EARS: no external swelling, no external redness NOSE: atraumatic, no external swelling MOUTH/THROAT: mucous membranes moist and pink NECK: soft, supple, full range of motion, no meningismus. CHEST: no distress, lungs clear and equal throughout. No wheezing, rales, rhonchi. CARDIAC: regular rate and rhythm, no murmur, normal capillary refill, normal pulses. BACK: full range of motion, no CVA tenderness. EXTREMITIES: full range of motion of all extremities. Small linear subungual hematoma to the right middle fingernail with a small abrasion at the base of the nail and abrasion to the middle phalanx. Minimal redness around these wounds. Mild tenderness to palpation. No purulent drainage. Full flexion and extension of the finger. Normal cap refill and sensation distally. No redness extending up the hand. Hand exam is unremarkable. NEURO: alert and oriented 3, no focal deficits, full range of motion of all extremities. PYSCH: appropriate mood, affect. Patient is cooperative. SKIN: pink, warm, dry, red linear excoriated areas to the dorsums of the hands and forearms consistent with scratching. No visible rash noted at this time. No rash in any other places at this time. Course - Re-evaluation Re-evalutation: 12/23/17 19:35 Patient is nontoxic appearing with stable vitals. The patient was bit by a dog on the right middle finger 2 days ago. She was told to come to be evaluated for this. Wounds appear to be healing well. There is minimal redness around each wound. There is no signs of obvious significant infection. No sign of flexor tenosynovitis. Full range of motion. No foreign body. No fever. X- ray shows no acute fracture or foreign body. Patient was given a dose of Augmentin here in the emergency department as well as a dose of tramadol for pain. She will be discharged home with instructions to clean wound twice a day with soap and water, take antibiotics as prescribed, follow-up for increasing pain, fever, redness, drainage, numbness, tingling, weakness, any further concerns. The dog is currently being watched by animal control and the patient will be contacted by the health department if rabies vaccine and immunoglobulin are required. Since the dog is currently being quarantined, this is not necessary today. The patient is noted to have elevated blood pressure during today's emergency department visit. The patient was informed of this finding. The patient was instructed that this may be related to pre-hypertension and requires further evaluation with a primary care provider. The patient has no hypertensive symptoms at this time. The patient's emergency department workup and current diagnosis were explained to the patient and or family. Follow-up instructions were provided. Medications if prescribed were discussed. Instructions for when to return to the emergency department including specific worrisome symptoms were discussed with the patient and/or family. - Vital Signs Vital signs: Temp Pulse Resp BP Pulse Ox 98.1 F 102 H 16 172/87 H 97 12/23/17 17:39 12/23/17 17:39 12/23/17 17:39 12/23/17 17:39 12/23/17 17:39 - Diagnostic Test Radiology reviewed: Image reviewed, Reports reviewed - Negative x-ray of the right hand Discharge - Discharge Clinical Impression: Dog bite of right hand without complication Qualifiers: Encounter type: initial encounter Qualified Code(s): S61.451A - Open bite of right hand, initial encounter; W54.0XXA - Bitten by dog, initial encounter; W54.0XXA - Bitten by dog, initial encounter Condition: Stable Disposition: HOME, SELF-CARE Instructions: Animal Bites ([facility]) Additional Instructions: Take medications as prescribed. Clean wound twice a day with soap and water and apply a thin layer of bacitracin. Take [id number] Benadryl or Claritin for your rash and apply [id number] hydrocortisone cream to the rash. Follow-up with the health department regarding the need for rabies vaccine and immunoglobulin. Follow-up for increasing pain, fever, redness, numbness, tingling, weakness, or for any further concerns. Your blood pressure was elevated during today's visit. Have this rechecked with your doctor. The medication you were prescribed today may cause drowsiness. Do not drive or operate heavy machinery while taking this medication. Prescriptions: Tramadol HCl [Ultram 50 mg Tablet] 50 mg PO Q6HP PRN #12 tablet PRN Reason: Amox Tr/Potassium Clavulanate [Augmentin 875-125 Tablet] 1 tab PO BID 5 Days # 10 tablet Forms: Elevated Blood Pressure, Smoking Cessation Education, Return to Work
--- NOTE | 2017-12-23 18:40 | RADIOLOGY REPORT (SQ) ---
EXAM DESCRIPTION: HAND RIGHT 3 VIEWS COMPLETED DATE/TIME: 12/23/2017 6:32 pm REASON FOR STUDY: dog bite COMPARISON: None. EXAM PARAMETERS: NUMBER OF VIEWS: Three views. TECHNIQUE: AP, lateral and oblique radiographic images acquired of the right hand. LIMITATIONS: None. FINDINGS: MINERALIZATION: Normal. BONES: No acute fracture or dislocation. No worrisome bone lesions. JOINTS: No effusions. SOFT TISSUES: No soft tissue swelling. No foreign body. OTHER: No other significant finding. IMPRESSION: NEGATIVE STUDY OF THE RIGHT HAND. NO RADIOGRAPHIC EVIDENCE OF ACUTE INJURY. TECHNICAL DOCUMENTATION: JOB ID: [id number] [employer]- All Rights Reserved Reading location - IP/workstation name: [email or web address]
[2017-12-23] MEDS ORDERED: TRAMADOL HCL 50 MG TABLET PO ONE (19:04)
[2017-12-23 19:51] VITALS: BP 169/92
== END 2017-12-23 19:53 | disposition home or self-care (01) ==
LOC: ER 17:34
DX: S61.451A Open bite of right hand, initial encounter (principal); R21 Rash and other nonspecific skin eruption; W54.0XXA Bitten by dog, initial encounter; J44.9 Chronic obstructive pulmonary disease, unspecified; I10 Essential (primary) hypertension; Z98.51 Tubal ligation status; Z87.442 Personal history of urinary calculi
CPT/HCPCS: 99283

== ENCOUNTER 2018-01-24 16:54 | Emergency (ER) | payer OTHER ==
[2018-01-24 17:00] VITALS: BP 187/91
--- NOTE | 2018-01-24 17:24 | RADIOLOGY REPORT (SQ) ---
EXAM DESCRIPTION: ELBOW LEFT OVER 2 VIEWS COMPLETED DATE/TIME: 01/24/2018 5:15 pm REASON FOR STUDY: Pain s/p injury COMPARISON: None. NUMBER OF VIEWS: Four views. TECHNIQUE: AP, lateral, and both oblique radiographic images acquired of the left elbow. LIMITATIONS: None. FINDINGS: MINERALIZATION: Normal. BONES: No acute fracture or dislocation. No worrisome bone lesions. JOINT: No effusion. SOFT TISSUES: No soft tissue swelling. No foreign body. OTHER: No other significant finding. IMPRESSION: NEGATIVE STUDY OF THE LEFT ELBOW. NO RADIOGRAPHIC EVIDENCE OF ACUTE INJURY. TECHNICAL DOCUMENTATION: JOB ID: [id number] [employer]- All Rights Reserved Reading location - IP/workstation name: [email or web address]
--- NOTE | 2018-01-24 17:49 | ER Document Report ---
ED Extremity Problem, Upper - General Chief Complaint: Elbow Injury Stated Complaint: ELBOW INJURY Time Seen by Provider: 01/24/18 17:11 Mode of Arrival: Ambulatory Information source: Patient TRAVEL OUTSIDE OF THE [place] IN LAST 30 DAYS: No - HPI Patient complains to provider of: Injury, Left, Elbow Notes: Patient is here with complaints of left elbow pain. She states that she hit her elbow on a metal counter several times a few days ago and now has pain in the left elbow. She states that when she tries to pick something up the pain radiates down her arm. She denies any other injuries. No numbness, tingling, weakness. No redness. No fever. No chest pain or shortness of breath. No rash. No other complaints. Pain is worse with movement, better with rest. - Related Data Allergies/Adverse Reactions: No Known Allergies Allergy (Verified 12/23/17 17:38) Past Medical History - Social History Smoking Status: Current Every Day Smoker Family History: CAD, CVA, DM, Hyperlipidemia, Hypertension, Malignancy - Past Medical History Cardiac Medical History: Reports: Hx Hypertension - Off lisinopril for months. Says she can't afford it despite it being $4 Pulmonary Medical History: Reports: Hx COPD Renal/ Medical History: Reports: Hx Kidney Stones. Denies: Hx Peritoneal Dialysis Musculoskeltal Medical History: Reports Hx Musculoskeletal Trauma Psychiatric Medical History: Reports: Hx Anxiety, Hx Depression Traumatic Medical History: Reports: Hx Fractures - Wrist Past Surgical History: Reports: Hx Appendectomy, Hx Tubal Ligation - Immunizations Hx Diphtheria, Pertussis, Tetanus Vaccination: No Review of Systems - Review of Systems -: Yes All other systems reviewed and negative Physical Exam - Vital signs Vitals: Temp Pulse Resp BP Pulse Ox 99.1 F 83 16 187/91 H 98 01/24/18 16:59 01/24/18 16:59 01/24/18 16:59 01/24/18 16:59 01/24/18 16:59 - Notes Notes: GENERAL: alert, cooperative, nontoxic, no distress. HEAD: normocephalic, atraumatic EYES: conjunctiva pink without discharge, no external redness or swelling. EARS: no external swelling, no external redness NOSE: atraumatic, no external swelling MOUTH/THROAT: mucous membranes moist and pink NECK: soft, supple, full range of motion, no meningismus. CHEST: no distress, lungs clear and equal throughout. No wheezing, rales, rhonchi. CARDIAC: regular rate and rhythm, no murmur, normal capillary refill, normal pulses. BACK: full range of motion, no CVA tenderness. EXTREMITIES: full range of motion of all extremities. No redness, no swelling. Tenderness to palpation of the left olecranon. No redness. Full range of motion. Skin is intact. Normal pulse and sensation distally. Compartments are soft. NEURO: alert and oriented 3, no focal deficits, full range of motion of all extremities. PYSCH: appropriate mood, affect. Patient is cooperative. SKIN: pink, warm, dry, no rash. Course - Re-evaluation Re-evalutation: 01/24/18 17:55 Patient is nontoxic appearing with stable vitals. She is here with complaints of left elbow pain. She had it several times a few days ago continues to have pain. Pain seems to be worse when she tries to pick something up or move it. No signs of infection. Skin is intact. Normal neurovascular exam. No signs of compartment syndrome. X-ray shows no acute abnormality. Patient was placed in an Javed wrap for comfort. She will be discharged home with prescription for Voltaren. She is instructed to rest, ice, elevate. Follow-up if not better in 1 week, sooner for worsening pain, fever, numbness, tingling, weakness, any further concerns. The patient is noted to have elevated blood pressure during today's emergency department visit. The patient was informed of this finding. The patient was instructed that this may be related to pre-hypertension and requires further evaluation with a primary care provider. The patient has no hypertensive symptoms at this time. The patient's emergency department workup and current diagnosis were explained to the patient and or family. Follow-up instructions were provided. Medications if prescribed were discussed. Instructions for when to return to the emergency department including specific worrisome symptoms were discussed with the patient and/or family. - Vital Signs Vital signs: Temp Pulse Resp BP Pulse Ox 99.1 F 83 16 187/91 H 98 01/24/18 16:59 01/24/18 16:59 01/24/18 16:59 01/24/18 16:59 01/24/18 16:59 - Diagnostic Test Radiology reviewed: Image reviewed, Reports reviewed - Left elbow negative Procedures - Immobilization left elbow Pre-Proc Neuro Vasc Exam: Normal Immobilizer type: Javed wrap Performed by: PCT Post-Proc Neuro Vasc Exam: Normal Alignment checked and good: Yes Discharge - Discharge Clinical Impression: Left elbow contusion Qualifiers: Encounter type: initial encounter Qualified Code(s): S50.02XA - Contusion of left elbow, initial encounter Condition: Stable Disposition: HOME, SELF-CARE Instructions: Contusion ([facility]), Nerve Contusion ([facility]) Additional Instructions: Wear Javed wrap as needed for comfort. Apply ice to sore area. Take medications as prescribed. Follow-up if not better in 1 week, sooner for worsening pain, fever, redness, numbness, tingling, weakness, any further concerns. Your blood pressure was elevated during today's visit. Have this rechecked with your doctor. Prescriptions: Diclofenac Sodium [Voltaren 50 Mg Tablet.] 50 mg PO BID #20 tablet.dr Forms: Elevated Blood Pressure, Smoking Cessation Education, Return to Work Referrals: JUSTIN AYALA MD [Primary Care Provider] - Follow up as needed
== END 2018-01-24 17:49 | disposition home or self-care (01) ==
LOC: ER 16:54
DX: S50.02XA Contusion of left elbow, initial encounter (principal); W22.09XA Striking against other stationary object, initial encounter; F17.200 Nicotine dependence, unspecified, uncomplicated; J44.9 Chronic obstructive pulmonary disease, unspecified; Z87.442 Personal history of urinary calculi; Z98.51 Tubal ligation status
CPT/HCPCS: 99283

== ENCOUNTER 2018-02-06 15:32 | Emergency (ER) | payer OTHER ==
[2018-02-06] MEDS ORDERED: LISINOPRIL 10 MG TABLET PO ONE (17:06)
[2018-02-06] MEDS ORDERED: PROCHLORPERAZINE MALEATE 10 MG TABLET PO ONE (17:07)
[2018-02-06] MEDS ORDERED: DIPHENHYDRAMINE HCL 25 MG CAPSULE PO ONE (17:07)
--- NOTE | 2018-02-06 17:09 | ER Document Report ---
ED Medical Screen (RME) - General Chief Complaint: Chest Pain Stated Complaint: HEADACHE Time Seen by Provider: 02/06/18 17:06 Mode of Arrival: Ambulatory Information source: Patient Notes: Patient presents complaining of right-sided headache pain for the past 3 days. Patient states she has a history of migraines that this pain feels similar. Patient reports nausea and vomiting 2 episodes today. Patient states that while she has been waiting here in the lobby she has started to develop left upper chest pain that goes into the left upper arm. Patient does have a history of hypertension and states she ran out of her lisinopril 1 week ago. hx: Migraine, hypertension, tubal ligation, appendectomy I have greeted and performed a rapid initial assessment of this patient. A comprehensive ED assessment and evaluation of the patient, analysis of test results and completion of the medical decision making process will be conducted by additional ED providers. TRAVEL OUTSIDE OF THE [place] IN LAST 30 DAYS: No - Related Data Allergies/Adverse Reactions: No Known Allergies Allergy (Verified 12/23/17 17:38) Past Medical History - Social History Chew tobacco use (# tins/day): No Frequency of alcohol use: None Drug Abuse: None - Past Medical History Cardiac Medical History: Reports: Hx Hypertension - Off lisinopril for months. Says she can't afford it despite it being $4 Pulmonary Medical History: Reports: Hx COPD Renal/ Medical History: Reports: Hx Kidney Stones. Denies: Hx Peritoneal Dialysis Musculoskeltal Medical History: Reports Hx Musculoskeletal Trauma Psychiatric Medical History: Reports: Hx Anxiety, Hx Depression Traumatic Medical History: Reports: Hx Fractures - Wrist Past Surgical History: Reports: Hx Appendectomy, Hx Tubal Ligation - Immunizations Hx Diphtheria, Pertussis, Tetanus Vaccination: No History of Influenza Vaccine for 06/2017 - 11/2017 Season: No Physical Exam - Vital signs Vitals: Temp Pulse Resp BP Pulse Ox 98.7 F 84 13 180/77 H 99 02/06/18 15:48 02/06/18 15:48 02/06/18 15:48 02/06/18 15:48 02/06/18 15:48 - Cardiovascular Rhythm: Regular Heart sounds: S1 appreciated, S2 appreciated - Neurological Neuro grossly intact: Yes Cognition: Normal Jb Coma Scale Eye Opening: Spontaneous [place] Coma Scale Verbal: Oriented [place] Coma Scale Motor: Obeys Commands Jb Coma Scale Total: 15 Course - Vital Signs Vital signs: Temp Pulse Resp BP Pulse Ox 98.7 F 84 13 180/77 H 99 02/06/18 15:48 02/06/18 15:48 02/06/18 15:48 02/06/18 15:48 02/06/18 15:48
--- NOTE | 2018-02-06 17:40 | RADIOLOGY REPORT (SQ) ---
EXAM DESCRIPTION: CT HEAD WITHOUT COMPLETED DATE/TIME: 02/06/2018 5:24 pm REASON FOR STUDY: GUTIERREZ,HTN COMPARISON: None. TECHNIQUE: Axial images acquired through the brain without intravenous contrast. Images reviewed wi th bone, brain and subdural windows. Additional sagittal and coronal reconstructions were generated. Images stored on PACS. All CT scanners at this facility use dose modulation, iterative reconstruction, and/or weight based d osing when appropriate to reduce radiation dose to as low as reasonably achievable (ALARA). [facility]: Dose Right [facility]: CareDose [facility]: Dose Right [facility]: Teradose 4D [facility]: Smart Message Missile RADIATION DOSE: CT Rad equipment meets quality standard of care and radiation dose reduction techniq ues were employed. CTDIvol: 53.2 mGy. DLP: 991 mGy-cm. mGy. LIMITATIONS: None. FINDINGS: VENTRICLES: Normal size and contour. CEREBRUM: No masses. No hemorrhage. No midline shift. No evidence for acute infarction. Normal gra y/white matter differentiation. No areas of low density in the white matter. CEREBELLUM: No masses. No hemorrhage. No alteration of density. No evidence for acute infarction. EXTRAAXIAL SPACES: No fluid collections. No masses. ORBITS AND GLOBE: No intra- or extraconal masses. Normal contour of globe without masses. CALVARIUM: No fracture. PARANASAL SINUSES: No fluid or mucosal thickening. SOFT TISSUES: No mass or hematoma. OTHER: No other significant finding. IMPRESSION: NORMAL BRAIN CT WITHOUT CONTRAST. EVIDENCE OF ACUTE STROKE: NO. COMMENT: Quality ID # [id number]: Final reports with documentation of one or more dose reduction techniques (e.g., Automated exposure control, adjustment of the mA and/or kV according to patient size, use of iterative reconstruction technique) TECHNICAL DOCUMENTATION: JOB ID: [id number] [employer]- All Rights Reserved Reading location - IP/workstation name: [email or web address]
--- NOTE | 2018-02-06 17:42 | RADIOLOGY REPORT (SQ) ---
EXAM DESCRIPTION: CHEST 2 VIEWS COMPLETED DATE/TIME: 02/06/2018 5:23 pm REASON FOR STUDY: cp COMPARISON: None. EXAM PARAMETERS: NUMBER OF VIEWS: two views TECHNIQUE: Digital Frontal and Lateral radiographic views of the chest acquired. RADIATION DOSE: NA LIMITATIONS: none FINDINGS: LUNGS AND PLEURA: No opacities, masses or pneumothorax. No pleural effusion. MEDIASTINUM AND HILAR STRUCTURES: No masses or contour abnormalities. HEART AND VASCULAR STRUCTURES: Heart normal size. No evidence for failure. BONES: No acute findings. HARDWARE: None in the chest. OTHER: No other significant finding. IMPRESSION: NO ACUTE RADIOGRAPHIC FINDING IN THE CHEST. TECHNICAL DOCUMENTATION: JOB ID: [id number] [employer]- All Rights Reserved Reading location - IP/workstation name: [email or web address]
[2018-02-06 18:34] LABS: ABSOLUTE BASOPHILS # (AUTO) 0.1 10^3/uL (0.0-0.2); ABSOLUTE EOSINOPHILS # (AUTO) 0.2 10^3/uL (0.0-0.6); ABSOLUTE LYMPHOCYTES (AUTO) 2.9 10^3/uL (0.5-4.7); ABSOLUTE MONOCYTES (AUTO) 0.7 10^3/uL (0.1-1.4); ABSOLUTE NEUT (AUTO) 7.9 10^3/uL (1.7-8.2); BASOPHILS % (AUTO) 0.9 % (0-2); EOSINOPHILS % (AUTO) 1.4 % (0-6); HEMATOCRIT 38.8 % (36.0-47.0); HEMOGLOBIN 12.6 g/dL (12.0-15.5); LYMPHOCYTES % (AUTO) 24.6 % (13-45); MEAN CORPUSCULAR HEMOGLOBIN 25.6 pg (27.0-33.4); MEAN CORPUSCULAR HGB CONC 32.6 g/dL (32.0-36.0); MEAN CORPUSCULAR VOLUME 79 fl (80-97); MONOCYTES % (AUTO) 6.1 % (3-13); PLATELET COUNT 329 10^3/uL (150-450); RED BLOOD COUNT 4.93 10^6/uL (3.72-5.28); RED CELL DISTRIBUTION WIDTH 15.9 % (11.5-14.0); TOTAL CELLS COUNTED % (AUTO) 100 %; WHITE BLOOD COUNT 11.8 10^3/uL (4.0-10.5)
[2018-02-06 18:51] LABS: ALANINE AMINOTRANSFERASE 22 U/L (9-52); ALBUMIN 4.3 g/dL (3.5-5.0); ALKALINE PHOSPHATASE 95 U/L (38-126); ANION GAP 11 (5-19); ASPARTATE AMINO TRANSFERASE 18 U/L (14-36); BILIRUBIN,DIRECT 0.2 mg/dL (0.0-0.4); BILIRUBIN,TOTAL 0.2 mg/dL (0.2-1.3); BLOOD UREA NITROGEN 16 mg/dL (7-20); CALCIUM 9.9 mg/dL (8.4-10.2); CARBON DIOXIDE 28 mmol/L (22-30); CHLORIDE 102 mmol/L (98-107); CREATINE KINASE 32 U/L (30-135); GLUCOSE 83 mg/dL (75-110); POTASSIUM 4.2 mmol/L (3.6-5.0); SODIUM 140.8 mmol/L (137-145); TOTAL PROTEIN 7.3 g/dL (6.3-8.2)
[2018-02-06 19:02] LABS: CREATINE KINASE MB 0.63 ng/mL (<4.55)
[2018-02-06 19:03] LABS: TROPONIN I < 0.012 ng/mL
[2018-02-06 19:17] LABS: AMORPHOUS SEDIMENT,URINE TRACE /HPF; APPEARANCE,URINE CLOUDY; BILIRUBIN,URINE NEGATIVE (NEGATIVE); COLOR,URINE YELLOW; GLUCOSE, URINE NEGATIVE (NEGATIVE); KETONES,URINE NEGATIVE (NEGATIVE); LEUKOCYTE ESTERASE,URINE NEGATIVE (NEGATIVE); NITRITE,URINE NEGATIVE (NEGATIVE); PROTEIN,URINE NEGATIVE (NEGATIVE); URINE SPECIFIC GRAVITY 1.004; UROBILINOGEN,URINE NEGATIVE mg/dL (<2.0)
[2018-02-06] MEDS ORDERED: ASPIRIN 81 MG TABLET, CHEWABLE PO ONE (19:26)
[2018-02-06] MEDS ORDERED: NORMAL SALINE 1000 ML 1,000 ML IV ONE (22:27)
[2018-02-06] MEDS ORDERED: METOCLOPRAMIDE HCL INJ/PF 10 MG/2 ML SDV IV ONE (22:27)
[2018-02-06] MEDS ORDERED: KETOROLAC TROMETHAMINE INJ/PF 30 MG/1 ML SDV IV ONE (22:27)
[2018-02-06] MEDS ORDERED: HALOPERIDOL LACTATE INJ 5 MG/1 ML VIAL IV ONE (22:28)
--- NOTE | 2018-02-06 23:35 | ER Document Report ---
ED General - General Chief Complaint: Chest Pain Stated Complaint: HEADACHE Time Seen by Provider: 02/06/18 17:06 Mode of Arrival: Ambulatory Notes: Patient is a 47-year-old female without chronic medical problems who presents with 36 hours of a progressively worsening migraine type headache. The patient describes a vice-like sensation to her bitemporal and frontal skull that is a throbbing, aching pain. She notes that lights, sounded movement worsen the headache. Nothing improves the headache. She notes a history of similar symptoms in the past. She has not seen her primary care doctor regarding today' s concerns. She denies any focal weakness, numbness, fever, neck pain or confusion. She states that she has had some intermittent paresthesias to her left upper extremity and has had some mild chest discomfort that she attributes to anxiety. She has no known history of cardiac pathology. She denies any chest discomfort at the time of my assessment. TRAVEL OUTSIDE OF THE [place] IN LAST 30 DAYS: No - Related Data Allergies/Adverse Reactions: No Known Allergies Allergy (Verified 12/23/17 17:38) Past Medical History - General Information source: Patient - Social History Smoking Status: Current Every Day Smoker Chew tobacco use (# tins/day): No Frequency of alcohol use: None Drug Abuse: None Lives with: Spouse/Significant other Family History: CAD, CVA, DM, Hyperlipidemia, Hypertension, Malignancy Patient has suicidal ideation: No Patient has homicidal ideation: No - Past Medical History Cardiac Medical History: Reports: Hx Hypertension - Off lisinopril for months. Says she can't afford it despite it being $4 Pulmonary Medical History: Reports: Hx COPD Renal/ Medical History: Reports: Hx Kidney Stones. Denies: Hx Peritoneal Dialysis Musculoskeltal Medical History: Reports Hx Musculoskeletal Trauma Psychiatric Medical History: Reports: Hx Anxiety, Hx Depression Traumatic Medical History: Reports: Hx Fractures - Wrist Past Surgical History: Reports: Hx Appendectomy, Hx Tubal Ligation - Immunizations Hx Diphtheria, Pertussis, Tetanus Vaccination: No Review of Systems - Review of Systems Notes: Constitutional: Negative for fever. HENT: Negative for sore throat. Eyes: Negative for visual changes. Cardiovascular: Positive for chest pain now resolved Respiratory: Negative for shortness of breath. Gastrointestinal: Negative for abdominal pain, vomiting or diarrhea. Genitourinary: Negative for dysuria. Musculoskeletal: Negative for back pain. Skin: Negative for rash. Neurological: positive for left upper extremity paresthesias and headache 10 point ROS negative except as marked above and in HPI. Physical Exam - Vital signs Vitals: Temp Pulse Resp BP Pulse Ox 98.7 F 84 13 180/77 H 99 02/06/18 15:48 02/06/18 15:48 02/06/18 15:48 02/06/18 15:48 02/06/18 15:48 Interpretation: Hypertensive Notes: PHYSICAL EXAMINATION: GENERAL: Well-appearing, well-nourished and in no acute distress. HEAD: Atraumatic, normocephalic. EYES: Pupils equal round and reactive to light, extraocular movements intact, sclera anicteric, conjunctiva are normal. ENT: nares patent, oropharynx clear without exudates. Moist mucous membranes. NECK: Normal range of motion, supple without lymphadenopathy LUNGS: Breath sounds clear to auscultation bilaterally and equal. No wheezes rales or rhonchi. HEART: Regular rate and rhythm without murmurs ABDOMEN: Soft, nontender, normoactive bowel sounds. No guarding, no rebound. No masses appreciated. EXTREMITIES: Normal range of motion, no pitting or edema. No cyanosis. NEUROLOGICAL: Face symmetric. Tongue protrudes midline. Extraocular motions intact. Pupils are 2 mm and equally reactive. Normal speech, normal gait. 5 out of 5 strength in both the distal and proximal upper and lower extremities bilaterally. Sensation is grossly intact throughout. Finger to nose testing normal. Pronator drift normal. PSYCH: Normal mood, normal affect. SKIN: Warm, Dry, normal turgor, no rashes or lesions noted. Course - Re-evaluation Re-evalutation: 02/06/18 23:33 Presentation of a headache that appears to be most consistent with tension versus migrainous type headache. Headache was not maximal in onset, patient has no focal neurologic deficits, no nuchal rigidity, vital signs within normal limits, no papilledema, and patient is overall well in appearance. Based on clinical history and examination I do not suspect an acute subarachnoid hemorrhage, dural venous sinus thrombosis, acute meningitis, or intercranial mass. Given my low clinical suspicion for any acute life-threatening etiology, I do not feel advanced neuro imaging or laboratory testing is indicated at this time. However in triage a CT of the head was obtained and is noted to be normal. Labs otherwise unremarkable as the patient apparently did complain of some left-sided chest discomfort or headache. This seems to be more consistent with a complex migraine headache as this has completely resolved after she received a migraine cocktail. 2 troponins have been obtained and are noted to be normal. EKG unremarkable. I do not suspect a cardiac etiology of her left arm tingling. At this time will discharge with return precautions and follow- up recommendations. Verbal discharge instructions given a the bedside and opportunity for questions given. Medication warnings reviewed. Patient is in agreement with this plan and has verbalized understanding of return precautions and the need for primary care follow-up in the next 24-72 hours. - Vital Signs Vital signs: Temp Pulse Resp BP Pulse Ox 98.1 F 72 18 155/83 H 99 02/06/18 23:47 02/06/18 23:47 02/06/18 23:47 02/06/18 23:47 02/06/18 23:47 - Laboratory Result Diagrams: 02/06/18 18:00 02/06/18 18:00 Laboratory results interpreted by me: 02/06/18 18:00 WBC 11.8 H MCV 79 L MCH 25.6 L RDW 15.9 H - Diagnostic Test Radiology reviewed: Image reviewed, Reports reviewed Radiology results interpreted by me: 02/06/18 23:34 CT head: No acute intracranial bleed or mass Chest x-ray: No acute infiltrate - EKG Interpretation by Me Additional EKG results interpreted by me: 02/07/18 04:08 Sinus rhythm. Rate 71. No ST elevations or depressions. QTC is 448. Discharge - Discharge Clinical Impression: Numbness and tingling in left arm Migraine headache Qualifiers: Migraine type: unspecified Status migrainosus presence: with status migrainosus Intractability: not intractable Qualified Code(s): G43.901 - Migraine, unspecified, not intractable, with status migrainosus Chest pain Qualifiers: Chest pain type: unspecified Qualified Code(s): R07.9 - Chest pain, unspecified Condition: Good Disposition: HOME, SELF-CARE Additional Instructions: You were seen today for a migraine headache. Please follow-up with your primary care doctor regarding today's ED visit. Return to emergency department immediately if you develop a headache that gets to its maximum severity within 20 minutes of onset, you pass out, you develop weakness, numbness, changes in your vision, become unable to keep any fluids down for more than 12 hours, or develop a fever greater than 100.4 degrees Fahrenheit. If you develop a similar migraine headache in the future I recommend that you immediately take 600 mg of ibuprofen and 50 mg of Benadryl and go to sleep as quickly as possible. This can often prevent your migraine headache from becoming severe.
[2018-02-06 23:54] VITALS: BP 155/83
--- NOTE | 2018-02-07 07:37 | EKG REPORT ---
SEVERITY:- ABNORMAL ECG - SINUS RHYTHM PROBABLE LEFT ATRIAL ABNORMALITY LEFT VENTRICULAR HYPERTROPHY : Confirmed by: Brian Echols MD 07-Feb-2018 07:36:41
== END 2018-02-06 23:54 | disposition home or self-care (01) ==
LOC: ER 15:32
DX: G43.901 Migraine, unspecified, not intractable, with status migrainosus (principal); R20.0 Anesthesia of skin; R20.2 Paresthesia of skin; R07.9 Chest pain, unspecified; F17.200 Nicotine dependence, unspecified, uncomplicated; I10 Essential (primary) hypertension; J44.9 Chronic obstructive pulmonary disease, unspecified; Z82.49 Family history of ischemic heart disease and other diseases of the circulatory system
CPT/HCPCS: 93005; 99285; 96361; 96374; 96375; 36415; 82553; 82550; 85025; 81025; 80053; 81001; 84484; 71046; 70450; 93010; J1630; J1885; S0183; J7030

== ENCOUNTER 2018-03-06 14:57 | Emergency (ER) | payer OTHER ==
[2018-03-06 15:03] VITALS: BP 174/93
[2018-03-06] MEDS ORDERED: ASPIRIN 81 MG TABLET, CHEWABLE PO ONE (16:13)
[2018-03-06 16:53] LABS: ABSOLUTE EOSINOPHILS # (AUTO) 0.2 10^3/uL (0.0-0.6); ABSOLUTE LYMPHOCYTES (AUTO) 1.9 10^3/uL (0.5-4.7); ABSOLUTE MONOCYTES (AUTO) 0.5 10^3/uL (0.1-1.4); ABSOLUTE NEUT (AUTO) 3.7 10^3/uL (1.7-8.2); BASOPHILS % (AUTO) 0.7 % (0-2); EOSINOPHILS % (AUTO) 2.5 % (0-6); HEMATOCRIT 37.7 % (36.0-47.0); HEMOGLOBIN 12.4 g/dL (12.0-15.5); LYMPHOCYTES % (AUTO) 29.7 % (13-45); MEAN CORPUSCULAR HEMOGLOBIN 26.1 pg (27.0-33.4); MEAN CORPUSCULAR VOLUME 79 fl (80-97); MONOCYTES % (AUTO) 7.9 % (3-13); PLATELET COUNT 199 10^3/uL (150-450); RED BLOOD COUNT 4.77 10^6/uL (3.72-5.28); RED CELL DISTRIBUTION WIDTH 17.2 % (11.5-14.0); SEGMENTED NEUTROPHILS % (AUTO) 59.2 % (42-78); TOTAL CELLS COUNTED % (AUTO) 100 %; WHITE BLOOD COUNT 6.3 10^3/uL (4.0-10.5)
[2018-03-06 16:59] LABS: INTERNATIONAL RATION (INR) 1.03
--- NOTE | 2018-03-06 17:08 | RADIOLOGY REPORT (SQ) ---
EXAM DESCRIPTION: CHEST SINGLE VIEW COMPLETED DATE/TIME: 03/06/2018 4:50 pm REASON FOR STUDY: syncope COMPARISON: 02/06/2018. EXAM PARAMETERS: NUMBER OF VIEWS: One view. TECHNIQUE: Single frontal radiographic view of the chest acquired. RADIATION DOSE: NA LIMITATIONS: None. FINDINGS: LUNGS AND PLEURA: No acute infiltrates or effusions. MEDIASTINUM AND HILAR STRUCTURES: No masses. Contour normal. HEART AND VASCULAR STRUCTURES: The heart is normal. The pulmonary vasculature is normal. BONES: No acute findings. HARDWARE: None in the chest. OTHER: No other significant finding. IMPRESSION: NO ACUTE RADIOGRAPHIC FINDING IN THE CHEST. TECHNICAL DOCUMENTATION: JOB ID: [id number] [email or web address]- All Rights Reserved Reading location - IP/workstation name: [email or web address]
[2018-03-06 17:14] LABS: ALANINE AMINOTRANSFERASE 18 U/L (9-52); ALBUMIN 4.1 g/dL (3.5-5.0); ALKALINE PHOSPHATASE 83 U/L (38-126); ANION GAP 10 (5-19); ASPARTATE AMINO TRANSFERASE 18 U/L (14-36); BILIRUBIN,DIRECT 0.3 mg/dL (0.0-0.4); BILIRUBIN,TOTAL 0.4 mg/dL (0.2-1.3); BLOOD UREA NITROGEN 9 mg/dL (7-20); CALCIUM 9.4 mg/dL (8.4-10.2); CARBON DIOXIDE 26 mmol/L (22-30); CHLORIDE 105 mmol/L (98-107); CREATINE KINASE 34 U/L (30-135); GLUCOSE 103 mg/dL (75-110); POTASSIUM 3.7 mmol/L (3.6-5.0); SODIUM 141.4 mmol/L (137-145)
[2018-03-06 17:16] LABS: D-DIMER 0.31 ug/mL (0.00-0.50)
[2018-03-06 17:25] LABS: CREATINE KINASE MB 0.45 ng/mL (<4.55)
[2018-03-06 17:28] LABS: TROPONIN I < 0.012 ng/mL
--- NOTE | 2018-03-06 18:21 | ER Document Report ---
ED Medical Screen (RME) - General TRAVEL OUTSIDE OF THE [place] IN LAST 30 DAYS: No <RAMIREZ BHATTI - Last Filed: 03/06/18 18:08> <CARMINA LOPEZ - Last Filed: 03/06/18 19:36> - General Chief Complaint: Passed Out Prior to Arrival Stated Complaint: WEAKNESS Time Seen by Provider: 03/06/18 16:05 Notes: Patient is a 47-year-old female who presents to the emergency department today with complaints of a syncopal episode that occurred prior to arrival. Patient states she had another syncopal episode earlier this week and she was seen at [facility] for this in [place]. Patient states her symptoms began with diaphoresis and progressed to ear ringing, then eye floaters, then full-body tingling, and then a 5 minute syncopal episode. Patient does mention that she has had increased stress. Patient denies any recent medicationc changes or supplements. I have greeted and performed a rapid initial assessment of this patient. A comprehensive ED assessment and evaluation of the patient, analysis of test results, and completion of the medical decision making process will be conducted by additional ED providers. Review of systems: Positive for diaphoresis, ears ringing, floaters, syncope, and increased stress. Negative for changes in medication or supplement usage. PHYSICAL EXAM GENERAL: Alert, interacts well. No acute distress. HEAD: Normocephalic, atraumatic. EYES: Pupils equal, round, and reactive to light. Extraocular movements intact. ENT: Oral mucosa moist, tongue midline. NECK: Full range of motion. Supple. Trachea midline. LUNGS: Clear to auscultation bilaterally, no wheezes, rales, or rhonchi. No respiratory distress. HEART: Regular rate and rhythm. No murmurs, gallops, or rubs. ABDOMEN: Soft, non-tender. Non-distended. Bowel sounds present in all 4 quadrants. No guarding, rigidity, or rebound. EXTREMITIES: Moves all 4 extremities spontaneously. NEUROLOGICAL: Alert and oriented x3. Normal speech. PSYCH: Normal affect, normal mood. SKIN: Warm, dry, normal turgor. No rashes or lesions noted. (RAMIREZ BHATTI) - Related Data Allergies/Adverse Reactions: No Known Allergies Allergy (Verified 03/06/18 15:00) Past Medical History - Social History Chew tobacco use (# tins/day): No Frequency of alcohol use: None Drug Abuse: None - Past Medical History Cardiac Medical History: Reports: Hx Hypertension - Off lisinopril for months. Says she can't afford it despite it being $4 Pulmonary Medical History: Reports: Hx COPD Renal/ Medical History: Reports: Hx Kidney Stones. Denies: Hx Peritoneal Dialysis Musculoskeltal Medical History: Reports Hx Musculoskeletal Trauma Psychiatric Medical History: Reports: Hx Anxiety, Hx Depression Traumatic Medical History: Reports: Hx Fractures - Wrist Past Surgical History: Reports: Hx Appendectomy, Hx Tubal Ligation - Immunizations Hx Diphtheria, Pertussis, Tetanus Vaccination: No History of Influenza Vaccine for 06/2017 - 11/2017 Season: No <RAMIREZ BHATTI - Last Filed: 03/06/18 18:08> - Vital signs Vitals: Temp Pulse Resp BP Pulse Ox 98.7 F 88 14 174/93 H 97 03/06/18 15:02 03/06/18 15:02 03/06/18 15:02 03/06/18 15:02 03/06/18 15:02 Course - Laboratory Result Diagrams: 03/06/18 16:39 03/06/18 16:39 <RAMIREZ BHATTI - Last Filed: 03/06/18 18:08> - Laboratory Result Diagrams: 03/06/18 16:39 03/06/18 16:39 <CARMINA LOPEZ - Last Filed: 03/06/18 19:36> - Vital Signs Vital signs: Temp Pulse Resp BP Pulse Ox 98.7 F 88 16 174/93 H 99 03/06/18 15:02 03/06/18 15:02 03/06/18 19:00 03/06/18 15:02 03/06/18 19:00 - Laboratory Laboratory results interpreted by me: 03/06/18 16:39 MCV 79 L MCH 26.1 L RDW 17.2 H Doctor's Discharge <RAMIREZ BHATTI - Last Filed: 03/06/18 18:08> <CARMINA LOPEZ - Last Filed: 03/06/18 19:36> - Discharge Clinical Impression: Syncope and collapse Condition: Good Disposition: HOME, SELF-CARE Additional Instructions: You were seen today after an episode of passing out. Your EKG here is normal. At this time, we do not feel that your episode of passing out was from any life- threatening cause. Please drink plenty of fluids over the next several days. Return to emergency department if you have any further episodes of syncope, headache, weakness, numbness, chest pain, or shortness of breath. Please follow up closely with your primary care physician as well as cardiology. Forms: Return to Work Referrals: SHORTY HONG MD [ACTIVE STAFF] - Follow up in 3-5 days JUSTIN AYALA MD [Primary Care Provider] - Follow up as needed Scribe Documentation - Scribe Written by Scribe:: Manjula Loredo, 03/06/2018 1821 acting as scribe for :: Karan <RAMIREZ BHATTI - Last Filed: 03/06/18 18:08>
--- NOTE | 2018-03-06 18:31 | ER Document Report ---
ED General - General Chief Complaint: Passed Out Prior to Arrival Stated Complaint: WEAKNESS Time Seen by Provider: 03/06/18 16:05 Notes: Patient is a 47 year old female with a past medical history of hypertension who presents with 2 episodes of syncope in the past 1 week. She was evaluated for her previous episode of syncope at [facility] and subsequently discharged. The patient states that today she had an episode in which she began to feel warm, flushed, diaphoretic and nauseated. She states that this lasted for approximately 1-2 minutes and then she did have an episode of syncope. She states that this is identical to her previous episode earlier this week. At the time of my assessment she denies any ongoing symptoms. She has not noted that anything seems to trigger her symptoms and that they do resolve spontaneously. She denies any known history of DVT, pulmonary embolus, congestive heart failure, or chronic kidney disease. She does note that she has been under significant stress lately related to an argument that she had with her son and that they have not been speaking for the past 1 week. She feels that this may be contributing to her symptoms. TRAVEL OUTSIDE OF THE [place] IN LAST 30 DAYS: No - Related Data Allergies/Adverse Reactions: No Known Allergies Allergy (Verified 03/06/18 15:00) Past Medical History - General Information source: Patient - Social History Smoking Status: Current Every Day Smoker Chew tobacco use (# tins/day): No Frequency of alcohol use: None Drug Abuse: None Lives with: Alone Family History: CAD, CVA, DM, Hyperlipidemia, Hypertension, Malignancy Patient has suicidal ideation: No Patient has homicidal ideation: No - Past Medical History Cardiac Medical History: Reports: Hx Hypertension - Off lisinopril for months. Says she can't afford it despite it being $4 Pulmonary Medical History: Reports: Hx COPD Renal/ Medical History: Reports: Hx Kidney Stones. Denies: Hx Peritoneal Dialysis Musculoskeltal Medical History: Reports Hx Musculoskeletal Trauma Psychiatric Medical History: Reports: Hx Anxiety, Hx Depression Traumatic Medical History: Reports: Hx Fractures - Wrist Past Surgical History: Reports: Hx Appendectomy, Hx Tubal Ligation - Immunizations Hx Diphtheria, Pertussis, Tetanus Vaccination: No Review of Systems - Review of Systems Notes: Constitutional: Negative for fever. HENT: Negative for sore throat. Eyes: Negative for visual changes. Cardiovascular: Negative for chest pain. Positive for syncope Respiratory: Negative for shortness of breath. Gastrointestinal: Negative for abdominal pain, vomiting or diarrhea. Genitourinary: Negative for dysuria. Musculoskeletal: Negative for back pain. Skin: Negative for rash. Neurological: Negative for headaches, weakness or numbness. 10 point ROS negative except as marked above and in HPI. Physical Exam - Vital signs Vitals: Temp Pulse Resp BP Pulse Ox 98.7 F 88 14 174/93 H 97 03/06/18 15:02 03/06/18 15:02 03/06/18 15:02 03/06/18 15:02 03/06/18 15:02 Interpretation: Hypertensive Notes: PHYSICAL EXAMINATION: GENERAL: Well-appearing, well-nourished and in no acute distress. HEAD: Atraumatic, normocephalic. EYES: Pupils equal round and reactive to light, extraocular movements intact, sclera anicteric, conjunctiva are normal. ENT: nares patent, oropharynx clear without exudates. Moist mucous membranes. NECK: Normal range of motion, supple without lymphadenopathy LUNGS: Breath sounds clear to auscultation bilaterally and equal. No wheezes rales or rhonchi. HEART: Regular rate and rhythm without murmurs ABDOMEN: Soft, nontender, normoactive bowel sounds. No guarding, no rebound. No masses appreciated. EXTREMITIES: Normal range of motion, no pitting or edema. No cyanosis. NEUROLOGICAL: No focal neurological deficits. Moves all extremities spontaneously and on command. PSYCH: Normal mood, normal affect. SKIN: Warm, Dry, normal turgor, no rashes or lesions noted. Course - Re-evaluation Re-evalutation: 03/06/18 18:30 Presentation of syncope of unclear etiology. Patient normotensive, alert, without focal neurologic deficits at time of arrival. Denies syncope was during exertion. No preceding symptoms of palpitations, chest pain, or shortness of breath. Patient asymptomatic at time of arrival. EKG is without evidence of HCOM , right heart strain, ST changes to suggest ischemia, prolong QTc, delta wave, epsilon wave, or Brugada syndrome. Patient denies any family history of sudden cardiac , personal history of of structural heart disease. Patient denies any symptoms to suggest an acute PE, PR, TAD, SAH, seizure, or acute GI bleed as the etiology of their syncope today. On exam, no murmurs to suggest critical aortic stenosis as possible etiology. Based on overall clinical history, exam findings, vitals, and patients appearance, I feel it is safe for patient to be discharged home at this time with close outpatient follow-up and strict return precautions. Patient is in agreement with this plan, has verbalized indications for return to ED, and questions have been answered. - Vital Signs Vital signs: Temp Pulse Resp BP Pulse Ox 98.7 F 88 16 174/93 H 99 03/06/18 15:02 03/06/18 15:02 03/06/18 19:00 03/06/18 15:02 03/06/18 19:00 - Laboratory Result Diagrams: 03/06/18 16:39 03/06/18 16:39 Laboratory results interpreted by me: 03/06/18 16:39 MCV 79 L MCH 26.1 L RDW 17.2 H - EKG Interpretation by Me Additional EKG results interpreted by me: 03/06/18 18:30 Normal sinus rhythm. Rate 72. No ST elevations or depressions. QTC is 456. Discharge - Discharge Clinical Impression: Syncope and collapse Condition: Good Disposition: HOME, SELF-CARE Additional Instructions: You were seen today after an episode of passing out. Your EKG here is normal. At this time, we do not feel that your episode of passing out was from any life- threatening cause. Please drink plenty of fluids over the next several days. Return to emergency department if you have any further episodes of syncope, headache, weakness, numbness, chest pain, or shortness of breath. Please follow up closely with your primary care physician as well as cardiology. Forms: Return to Work Referrals: JUSTIN AYALA MD [Primary Care Provider] - Follow up as needed SHORTY HONG MD [ACTIVE STAFF] - Follow up in 3-5 days
--- NOTE | 2018-03-06 18:49 | EKG REPORT ---
SEVERITY:- ABNORMAL ECG - SINUS RHYTHM CONSIDER LEFT VENTRICULAR HYPERTROPHY : Confirmed by: Sara Morfin 06-Mar-2018 18:48:58
== END 2018-03-06 19:31 | disposition home or self-care (01) ==
LOC: ER 14:57
DX: R55 Syncope and collapse (principal); I10 Essential (primary) hypertension; J44.9 Chronic obstructive pulmonary disease, unspecified; F17.200 Nicotine dependence, unspecified, uncomplicated
CPT/HCPCS: 36415; 71045; 80053; 82550; 82553; 84484; 85025; 85379; 85610; 93005; 93010; 99284

== ENCOUNTER 2018-03-13 15:26 | Observation (INO) | payer OTHER ==
--- NOTE | 2018-03-13 16:35 | ER Document Report ---
ED Medical Screen (RME) - General Chief Complaint: Back Pain Stated Complaint: SYNCOPE Time Seen by Provider: 03/13/18 16:24 Notes: 47-year-old female patient comes emergency room complaining of syncopal episode without warning signs. She denies injury in the event today where she woke up on the floor when she was folding clothes. She also has been having low back pain. She was seen here on 03/06/2018 for similar syncopal episode, was to follow-up with cardiology but states she does not have insurance. She had been seen at [facility] for the same thing and worked up in discharge. By history she has never had a monitor or event monitor. I have greeted and performed a rapid initial assessment of this patient. A comprehensive ED assessment and evaluation of the patient, analysis of test results and completion of the medical decision making process will be conducted by additional ED providers. TRAVEL OUTSIDE OF THE [place] IN LAST 30 DAYS: No - Related Data Allergies/Adverse Reactions: No Known Allergies Allergy (Verified 03/13/18 16:13) Home Medications: Patient states she is supposed to be taking Lisinopril but cannot afford it. Past Medical History - Social History Chew tobacco use (# tins/day): No Frequency of alcohol use: None Drug Abuse: None - Past Medical History Cardiac Medical History: Reports: Hx Hypertension - Off lisinopril for months. Says she can't afford it despite it being $4 Pulmonary Medical History: Reports: Hx COPD Renal/ Medical History: Reports: Hx Kidney Stones. Denies: Hx Peritoneal Dialysis Musculoskeltal Medical History: Reports Hx Musculoskeletal Trauma Psychiatric Medical History: Reports: Hx Anxiety, Hx Depression Traumatic Medical History: Reports: Hx Fractures - Wrist Past Surgical History: Reports: Hx Appendectomy, Hx Tubal Ligation - Immunizations Hx Diphtheria, Pertussis, Tetanus Vaccination: No History of Influenza Vaccine for 06/2017 - 11/2017 Season: No Physical Exam - Vital signs Vitals: Temp Pulse Resp BP Pulse Ox 98.6 F 78 16 186/91 H 98 03/13/18 15:41 03/13/18 15:41 03/13/18 15:41 03/13/18 15:41 03/13/18 15:41 Course - Vital Signs Vital signs: Temp Pulse Resp BP Pulse Ox 98.6 F 78 16 186/91 H 98 03/13/18 15:41 03/13/18 15:41 03/13/18 15:41 03/13/18 15:41 03/13/18 15:41 Doctor's Discharge - Discharge Referrals: JUSTIN AYALA MD [Primary Care Provider] - Follow up as needed
[2018-03-13 17:20] LABS: ABSOLUTE BASOPHILS # (AUTO) 0.1 10^3/uL (0.0-0.2); ABSOLUTE EOSINOPHILS # (AUTO) 0.1 10^3/uL (0.0-0.6); ABSOLUTE LYMPHOCYTES (AUTO) 2.1 10^3/uL (0.5-4.7); ABSOLUTE MONOCYTES (AUTO) 0.6 10^3/uL (0.1-1.4); ABSOLUTE NEUT (AUTO) 7.5 10^3/uL (1.7-8.2); BASOPHILS % (AUTO) 0.7 % (0-2); EOSINOPHILS % (AUTO) 0.8 % (0-6); HEMATOCRIT 34.6 % (36.0-47.0); HEMOGLOBIN 11.4 g/dL (12.0-15.5); LYMPHOCYTES % (AUTO) 20.3 % (13-45); MEAN CORPUSCULAR HEMOGLOBIN 25.8 pg (27.0-33.4); MEAN CORPUSCULAR VOLUME 78 fl (80-97); MONOCYTES % (AUTO) 6.1 % (3-13); PLATELET COUNT 224 10^3/uL (150-450); RED BLOOD COUNT 4.43 10^6/uL (3.72-5.28); RED CELL DISTRIBUTION WIDTH 16.8 % (11.5-14.0); SEGMENTED NEUTROPHILS % (AUTO) 72.1 % (42-78); TOTAL CELLS COUNTED % (AUTO) 100 %; WHITE BLOOD COUNT 10.4 10^3/uL (4.0-10.5)
[2018-03-13 17:42] LABS: ALANINE AMINOTRANSFERASE 21 U/L (9-52); ALBUMIN 4.2 g/dL (3.5-5.0); ALKALINE PHOSPHATASE 83 U/L (38-126); ANION GAP 9 (5-19); ASPARTATE AMINO TRANSFERASE 18 U/L (14-36); BILIRUBIN,DIRECT 0.3 mg/dL (0.0-0.4); BILIRUBIN,TOTAL 0.3 mg/dL (0.2-1.3); BLOOD UREA NITROGEN 11 mg/dL (7-20); CALCIUM 9.3 mg/dL (8.4-10.2); CARBON DIOXIDE 26 mmol/L (22-30); CHLORIDE 106 mmol/L (98-107); CREATINE KINASE 42 U/L (30-135); GLUCOSE 80 mg/dL (75-110); SODIUM 141.3 mmol/L (137-145); TOTAL PROTEIN 7.2 g/dL (6.3-8.2)
--- NOTE | 2018-03-13 18:53 | ER Document Report ---
ED General - General Chief Complaint: Back Pain Stated Complaint: SYNCOPE Time Seen by Provider: 03/13/18 16:24 Notes: Patient is a 47-year old female with a past medical history of hypertension who presents after having a syncopal episode today without any preceding symptoms by her report. The patient has had 4-5 syncopal episodes over the past 2 weeks and I did see her approximately 1 week ago for the same. At that time the patient had appropriate symptoms prior to her episode of syncope but today states that she was getting dressed and abruptly lost consciousness. She states that her significant other heard a "thud" and found her unconscious lying on the floor. The patient has no recollection of becoming lightheaded or having any symptoms prior to this event. At the time of my evaluation she states that she feels well. She denies any chest pain, shortness of breath, headache, neck pain and denies sustaining any injury during today's episode of syncope. She has not been able to follow-up with cardiology due to insurance issues. She cannot think of anything that would have triggered today's episode of syncope. Her symptoms did resolve spontaneously. TRAVEL OUTSIDE OF THE [place] IN LAST 30 DAYS: No - Related Data Allergies/Adverse Reactions: No Known Allergies Allergy (Verified 03/13/18 16:13) Home Medications: Patient states she is supposed to be taking Lisinopril but cannot afford it. Past Medical History - General Information source: Patient - Social History Smoking Status: Current Every Day Smoker Chew tobacco use (# tins/day): No Frequency of alcohol use: None Drug Abuse: None Lives with: Spouse/Significant other Family History: CAD, CVA, DM, Hyperlipidemia, Hypertension, Malignancy Patient has suicidal ideation: No Patient has homicidal ideation: No - Past Medical History Cardiac Medical History: Reports: Hx Hypertension - Off lisinopril for months. Says she can't afford it despite it being $4 Pulmonary Medical History: Reports: Hx COPD Renal/ Medical History: Reports: Hx Kidney Stones. Denies: Hx Peritoneal Dialysis Musculoskeltal Medical History: Reports Hx Musculoskeletal Trauma Psychiatric Medical History: Reports: Hx Anxiety, Hx Depression Traumatic Medical History: Reports: Hx Fractures - Wrist Past Surgical History: Reports: Hx Appendectomy, Hx Tubal Ligation - Immunizations Hx Diphtheria, Pertussis, Tetanus Vaccination: No Review of Systems - Review of Systems Notes: Constitutional: Negative for fever. HENT: Negative for sore throat. Eyes: Negative for visual changes. Cardiovascular: Negative for chest pain. Positive for syncope Respiratory: Negative for shortness of breath. Gastrointestinal: Negative for abdominal pain, vomiting or diarrhea. Genitourinary: Negative for dysuria. Musculoskeletal: Negative for back pain. Skin: Negative for rash. Neurological: Negative for headaches, weakness or numbness. 10 point ROS negative except as marked above and in HPI. Physical Exam - Vital signs Vitals: Temp Pulse Resp BP Pulse Ox 98.6 F 78 16 186/91 H 98 03/13/18 15:41 03/13/18 15:41 03/13/18 15:41 03/13/18 15:41 03/13/18 15:41 Interpretation: Hypertensive Notes: PHYSICAL EXAMINATION: GENERAL: Well-appearing, well-nourished and in no acute distress. HEAD: Atraumatic, normocephalic. EYES: Pupils equal round and reactive to light, extraocular movements intact, sclera anicteric, conjunctiva are normal. ENT: nares patent, oropharynx clear without exudates. Moist mucous membranes. NECK: Normal range of motion, supple without lymphadenopathy LUNGS: Breath sounds clear to auscultation bilaterally and equal. No wheezes rales or rhonchi. HEART: Regular rate and rhythm without murmurs ABDOMEN: Soft, nontender, normoactive bowel sounds. No guarding, no rebound. No masses appreciated. EXTREMITIES: Normal range of motion, no pitting or edema. No cyanosis. NEUROLOGICAL: No focal neurological deficits. Moves all extremities spontaneously and on command. PSYCH: Normal mood, normal affect. SKIN: Warm, Dry, normal turgor, no rashes or lesions noted. Course - Re-evaluation Re-evalutation: 03/13/18 18:52 Patient presents with a syncopal episode that occurred without any preceding symptoms worrisome for possible dysrhythmia. Patient has had 4 total episodes of syncope within the past 2 weeks but has been unable to follow-up with cardiology due to insurance issues. She has never had an episode of syncope without preceding symptoms. She denies any symptoms at the time of my evaluation other than a mild low right back pain which has been present for the past several days. No red flag symptoms for this back pain. No abdominal pain. EKG without ischemic changes, prolonged QT a widened QRS. Labs again unremarkable today. Given that the patient had a syncopal episode without preceding symptoms of believe she requires hospitalization for continuous cardiac event monitoring as well as echocardiogram and cardiology consultation. - Vital Signs Vital signs: Temp Pulse Resp BP Pulse Ox 98.2 F 92 16 185/96 H 100 03/13/18 23:38 03/14/18 02:00 03/13/18 23:38 03/13/18 23:38 03/13/18 23:38 - Laboratory Result Diagrams: 03/13/18 17:03 03/13/18 17:03 Laboratory results interpreted by me: 03/13/18 17:03 Hgb 11.4 L Hct 34.6 L MCV 78 L MCH 25.8 L RDW 16.8 H - EKG Interpretation by Me Additional EKG results interpreted by me: 03/13/18 18:53 Sinus rhythm. Rate 77. No ST elevations or depressions. QTC is 449. Discharge - Discharge Clinical Impression: Syncope and collapse, Essential hypertension Right low back pain Qualifiers: Chronicity: acute Sciatica presence: without sciatica Qualified Code(s): M54.5 - Low back pain Condition: Fair Disposition: ADMITTED OBSERVATION Admitting Provider: Hospitalist Unit Admitted: Telemetry
[2018-03-13] MEDS ORDERED: NORMAL SALINE 1000 ML 1,000 ML IV ONE (21:00)
[2018-03-13] MEDS: HYDRALAZINE HCL INJ/PF 20 MG/1 ML SDV IV PRN (22:50)
[2018-03-13] MEDS: ACETAMINOPHEN 325 MG TABLET PO PRN (22:54)
[2018-03-13 23:29] LABS: CREATINE KINASE MB 0.39 ng/mL (<4.55)
[2018-03-13 23:40] LABS: TROPONIN I < 0.012 ng/mL
--- NOTE | 2018-03-14 04:53 | PDOC H&P ---
History of Present Illness Admission Date/PCP: 03/13/18 19:41 JUSTIN AYALA MD Patient complains of: Syncope 3 History of Present Illness: JOHN OWUSU is a 47 year old female with a past medical history of migraine headache, chronic right flank pain, depression, anxiety, hypertension, tobacco dependence who presents with syncope 5 over the last 2 weeks. Patient states this occurs while at rest without warning, denying headaches, palpitations shortness of breath nausea vomiting or chest pain. Notably she has not sustained injury during any event, she admits exceptional stress involving arguments with her son.. Patient denies current medication use in the emergency room she is found to have uncontrolled hypertension but an otherwise unremarkable workup and referred the hospitalist for observation. Past Medical History Cardiac Medical History: Reports: Hypertension - Off lisinopril for months. Says she can't afford it despite it being $4 Pulmonary Medical History: Reports: Chronic Obstructive Pulmonary Disease (COPD) EENT Medical History: Reports: None Neurological Medical History: Reports: Migraine Psychiatric Medical History: Reports: Depression Past Surgical History Past Surgical History: Reports: Appendectomy, Tubal Ligation Social History Information Source: Patient Lives with: Spouse/Significant other Smoking Status: Current Every Day Smoker Number of Years Smokin Frequency of Alcohol Use: None Hx Recreational Drug Use: No - denies Drugs: None Hx Prescription Drug Abuse: No - Advance Directive Resuscitation Status: Full Code Family History Family History: CAD, CVA, DM, Hyperlipidemia, Hypertension, Malignancy Parental Family History Reviewed: Yes Children Family History Reviewed: Yes Sibling(s) Family History Reviewed.: Yes Medication/Allergy Home Medications: Lisinopril [Lisinopril] 10 mg PO DAILY 03/13/18 Allergies/Adverse Reactions: No Known Allergies Allergy (Verified 03/13/18 16:13) Review of Systems Constitutional: ABSENT: chills, fever(s), headache(s), weight gain, weight loss Eyes: ABSENT: visual disturbances Ears: ABSENT: hearing changes Cardiovascular: ABSENT: chest pain, dyspnea on exertion, edema, orthropnea, palpitations Respiratory: ABSENT: cough, hemoptysis Gastrointestinal: ABSENT: abdominal pain, constipation, diarrhea, hematemesis, hematochezia, nausea, vomiting Genitourinary: ABSENT: dysuria, hematuria Musculoskeletal: ABSENT: joint swelling Integumentary: ABSENT: rash, wounds Neurological: ABSENT: abnormal gait, abnormal speech, confusion, dizziness, focal weakness, syncope Psychiatric: ABSENT: anxiety, depression, homidical ideation, suicidal ideation Endocrine: ABSENT: cold intolerance, heat intolerance, polydipsia, polyuria Hematologic/Lymphatic: ABSENT: easy bleeding, easy bruising Physical Exam Vital Signs: Temp Pulse Resp BP Pulse Ox 98.2 F 92 16 185/96 H 100 03/13/18 23:38 03/14/18 02:00 03/13/18 23:38 03/13/18 23:38 03/13/18 23:38 Intake & Output 03/12/18 03/13/18 03/14/18 11:59 11:59 11:59 Weight 53 kg General appearance: PRESENT: no acute distress, well-developed, well-nourished Head exam: PRESENT: atraumatic, normocephalic Eye exam: PRESENT: conjunctiva pink, EOMI, PERRLA. ABSENT: scleral icterus Ear exam: PRESENT: normal external ear exam Mouth exam: PRESENT: moist, tongue midline Neck exam: ABSENT: carotid bruit, JVD, lymphadenopathy, thyromegaly Respiratory exam: PRESENT: clear to auscultation john. ABSENT: rales, rhonchi, wheezes Cardiovascular exam: PRESENT: RRR. ABSENT: diastolic murmur, rubs, systolic murmur Pulses: PRESENT: normal dorsalis pedis pul Vascular exam: PRESENT: normal capillary refill GI/Abdominal exam: PRESENT: normal bowel sounds, soft. ABSENT: distended, guarding, mass, organolmegaly, rebound, tenderness Rectal exam: PRESENT: deferred Extremities exam: PRESENT: full ROM. ABSENT: calf tenderness, clubbing, pedal edema Neurological exam: PRESENT: alert, awake, oriented to person, oriented to place , oriented to time, oriented to situation, CN II-XII grossly intact. ABSENT: motor sensory deficit Psychiatric exam: PRESENT: appropriate affect, normal mood. ABSENT: homicidal ideation, suicidal ideation Skin exam: PRESENT: dry, intact, warm. ABSENT: cyanosis, rash Results Laboratory Results: 03/13/18 22:55 CK-MB (CK-2) 0.39 Troponin I < 0.012 Assessment & Plan - Diagnosis (1) Syncope and collapse Is this a current diagnosis for this admission?: Yes Plan: Telemetry observation, serial cardiac enzymes, orthostatic blood pressures consider echocardiogram. Reassurance (2) Depression with anxiety Is this a current diagnosis for this admission?: Yes Plan: Trial of trazodone (3) Essential hypertension Is this a current diagnosis for this admission?: Yes Plan: Trial trazodone and CHANELLE inhibitor (4) Right low back pain Qualifiers: Chronicity: acute Sciatica presence: without sciatica Qualified Code(s): M54.5 - Low back pain Is this a current diagnosis for this admission?: Yes Plan: Chronic present on ER evaluation 2012. Symptomatic management - Time Time Spent: 50 to 70 Minutes - Inpatient Certification Medical Necessity: Need Close Monitoring Due to Risk of Patient Decompensation
[2018-03-14 04:58] LABS: URINE AMPHETAMINES SCREEN NEGATIVE; URINE BARBITURATES SCREEN NEGATIVE; URINE BENZODIAZEPINES SCREEN NEGATIVE; URINE COCAINE SCREEN NEGATIVE; URINE MARIJUANA (THC) SCREEN NEGATIVE; URINE METHADONE SCREEN NEGATIVE; URINE PHENCYCLIDINE SCREEN NEGATIVE
[2018-03-14] MEDS ORDERED: TRAZODONE HCL 50 MG TABLET PO ONE (05:00)
[2018-03-14] MEDS: HYDRALAZINE HCL INJ/PF 20 MG/1 ML SDV IV PRN (05:25)
[2018-03-14 05:47] LABS: CREATINE KINASE MB 0.34 ng/mL (<4.55)
[2018-03-14 05:52] LABS: TROPONIN I < 0.012 ng/mL
[2018-03-14 06:03] LABS: CREATINE KINASE 29 U/L (30-135); TRIGLYCERIDES 94 mg/dL (<150)
[2018-03-14 06:14] LABS: DIRECT LDL 66 mg/dL (<100)
--- NOTE | 2018-03-14 07:56 | EKG REPORT ---
SEVERITY:- ABNORMAL ECG - SINUS RHYTHM CONSIDER LEFT VENTRICULAR HYPERTROPHY : Confirmed by: Virginia Barraza MD 14-Mar-2018 07:55:43
[2018-03-14] MEDS: DOCUSATE SODIUM 100 MG CAPSULE PO SCH ×2 (10:34→17:10)
[2018-03-14] MEDS: ACETAMINOPHEN 325 MG TABLET PO PRN (11:09)
[2018-03-14] MEDS ORDERED: LISINOPRIL 10 MG TABLET PO ONE (11:15)
[2018-03-14 11:30] LABS: CREATINE KINASE MB 0.34 ng/mL (<4.55)
[2018-03-14 11:33] LABS: TROPONIN I < 0.012 ng/mL
--- NOTE | 2018-03-14 14:28 | PDOC PROGRESS REPORT ---
Subjective Progress Note for:: 03/14/18 Subjective:: Patient admitted with hypertensive urgency as well as syncope. She states that she was unable to afford her lisinopril and so she has been out of medicine for about 4 weeks. She is unaware that she can purchase lisinopril from [employer] $4 for a 30 day supply. She is still complains of occasional headache but denies any nausea and vomiting blurred vision, Reason For Visit: SYNCOPE Physical Exam Vital Signs: Temp Pulse Resp BP Pulse Ox 98 F 82 14 150/86 H 100 03/14/18 12:00 03/14/18 12:00 03/14/18 12:00 03/14/18 12:00 03/14/18 12:00 Intake & Output 03/13/18 03/14/18 03/15/18 06:59 06:59 06:59 Intake Total 1320 Output Total 1000 Balance 320 Weight 53 kg General appearance: PRESENT: no acute distress, well-developed, well-nourished Head exam: PRESENT: atraumatic, normocephalic Eye exam: PRESENT: conjunctiva pink, EOMI, PERRLA. ABSENT: scleral icterus Ear exam: PRESENT: normal external ear exam Mouth exam: PRESENT: moist, tongue midline Neck exam: ABSENT: carotid bruit, JVD, lymphadenopathy, thyromegaly Respiratory exam: PRESENT: clear to auscultation john. ABSENT: rales, rhonchi, wheezes Cardiovascular exam: PRESENT: RRR. ABSENT: diastolic murmur, rubs, systolic murmur Pulses: PRESENT: normal dorsalis pedis pul Vascular exam: PRESENT: normal capillary refill GI/Abdominal exam: PRESENT: normal bowel sounds, soft. ABSENT: distended, guarding, mass, organolmegaly, rebound, tenderness Rectal exam: PRESENT: deferred Extremities exam: PRESENT: full ROM. ABSENT: calf tenderness, clubbing, pedal edema Neurological exam: PRESENT: alert, awake, oriented to person, oriented to place , oriented to time, oriented to situation, CN II-XII grossly intact. ABSENT: motor sensory deficit Psychiatric exam: PRESENT: appropriate affect, normal mood. ABSENT: homicidal ideation, suicidal ideation Skin exam: PRESENT: dry, intact, warm. ABSENT: cyanosis, rash Results Laboratory Results: 03/14/18 04:49 Triglycerides 94 Cholesterol 152.00 LDL Cholesterol Direct 66 VLDL Cholesterol 19.0 HDL Cholesterol 68 03/13/18 03/14/18 03/14/18 22:55 04:49 04:49 Creatine Kinase 29 L CK-MB (CK-2) 0.39 0.34 Troponin I < 0.012 < 0.012 03/14/18 10:47 Creatine Kinase CK-MB (CK-2) 0.34 Troponin I < 0.012 Assessment & Plan - Time Time Spent with patient: 15-24 minutes Medications reviewed and adjusted accordingly: Yes Anticipated discharge: Home Within: within 24 hours - Inpatient Certification Based on my medical assessment, after consideration of the patient's comorbidities, presenting symptoms, or acuity I expect that the services needed warrant INPATIENT care.: Yes Medical Necessity: Need Close Monitoring Due to Risk of Patient Decompensation - Plan Summary Plan Summary: Syncope and collapse-unclear what to really make of this but patient has been on telemetry with no evidence of any arrhythmia. I will go ahead and order an echocardiogram and show no underlying cardiac etiology. 2. Hypertensive urgency likely contributing to patient's symptoms. Patient has been started on lisinopril and will continue to use hydralazine as needed. 3. Depression with anxiety she has been started on trazodone 4. Right low back pain which is chronic
[2018-03-14] MEDS: TRAZODONE HCL 50 MG TABLET PO SCH (21:30)
[2018-03-15] MEDS ORDERED: LISINOPRIL 10 MG TABLET PO SCH (10:00)
[2018-03-15] MEDS: DOCUSATE SODIUM 100 MG CAPSULE PO SCH (10:19)
[2018-03-15] MEDS: TRAZODONE HCL 50 MG TABLET PO SCH (10:29)
--- NOTE | 2018-03-15 13:56 | PDOC DISCHARGE SUMMARY ---
General - Admit/Disc Date/PCP Admission Date/Primary Care Provider: 03/13/18 19:41 JUSTIN AYALA MD Discharge Date: 03/15/18 - Discharge Diagnosis (1) Right low back pain Is this a current diagnosis for this admission?: Yes (2) Depression with anxiety Is this a current diagnosis for this admission?: Yes Summary: Patient started on Desyrel and this will need outpatient management and follow- up (3) Hypertensive urgency Is this a current diagnosis for this admission?: Yes (4) Syncope and collapse Is this a current diagnosis for this admission?: Yes - Additional Information Resuscitation Status: Full Code Discharge Diet: Cardiac Discharge Activity: Activity As Tolerated Prescriptions: Lisinopril [Prinivil 10 mg Tablet] 20 mg PO DAILY 30 Days tablet Trazodone HCl [Desyrel 50 mg Tablet] 50 mg PO Q12 #60 tablet Home Medications: Lisinopril [Prinivil 10 mg Tablet] 20 mg PO DAILY 30 Days tablet 03/15/18 Trazodone HCl [Desyrel 50 mg Tablet] 50 mg PO Q12 #60 tablet 03/15/18 History of Present Illness Patient complains of: Patient was admitted with uncontrolled hypertension secondary to noncompliance. Patient was unable to afford her medications. She also had been under some stress and there was a complaint of syncope 3 History of Present Illness: JOHN OWUSU is a 47 year old female with a past medical history of migraine headache, chronic right flank pain, depression, anxiety, hypertension, tobacco dependence who presents with syncope 5 over the last 2 weeks. Patient states this occurs while at rest without warning, denying headaches, palpitations shortness of breath nausea vomiting or chest pain. Notably she has not sustained injury during any event, she admits exceptional stress involving arguments with her son.. Patient denies current medication use in the emergency room she is found to have uncontrolled hypertension but an otherwise unremarkable workup and referred the hospitalist for observation. Hospital Course Hospital Course: Patient was admitted with uncontrolled hypertension secondary to noncompliance. Patient was unable to afford her medications. She also had been under some stress and there was a complaint of syncope 3. Patient was also thought to be depressed due to some stressors. She was treated with parenteral antihypertensives and then restarted back on her previous home medicine of lisinopril at a higher dose. Her initial blood pressure was 185/96 and this has continued to improve while in hospital with the last one at 146/84. She has ambulated with no evidence of syncope. Her two-dimensional echocardiogram is officially to be red but discussion with cardiology indicates no significant findings. With stable hemodynamics and resolution of presenting symptoms she is been discharged home. Patient has been advised that she can obtain a lisinopril for $4 for a 30 day supply at [facility] and she has been encouraged to be compliant with her medications Physical Exam Vital Signs: Temp Pulse Resp BP Pulse Ox 98.2 F 69 12 146/84 H 100 03/15/18 11:28 03/15/18 11:28 03/15/18 11:28 03/15/18 11:28 03/15/18 11:28 Intake & Output 03/14/18 03/15/18 03/16/18 06:59 06:59 06:59 Intake Total 1320 1162 Output Total 1000 800 Balance 320 362 Weight 53 kg 55.5 kg General appearance: PRESENT: no acute distress, well-developed, well-nourished Head exam: PRESENT: atraumatic, normocephalic Eye exam: PRESENT: conjunctiva pink, EOMI, PERRLA. ABSENT: scleral icterus Ear exam: PRESENT: normal external ear exam Mouth exam: PRESENT: moist, tongue midline Neck exam: ABSENT: carotid bruit, JVD, lymphadenopathy, thyromegaly Respiratory exam: PRESENT: clear to auscultation john. ABSENT: rales, rhonchi, wheezes Cardiovascular exam: PRESENT: RRR. ABSENT: diastolic murmur, rubs, systolic murmur Pulses: PRESENT: normal dorsalis pedis pul Vascular exam: PRESENT: normal capillary refill GI/Abdominal exam: PRESENT: normal bowel sounds, soft. ABSENT: distended, guarding, mass, organolmegaly, rebound, tenderness Rectal exam: PRESENT: deferred Extremities exam: PRESENT: full ROM. ABSENT: calf tenderness, clubbing, pedal edema Neurological exam: PRESENT: alert, awake, oriented to person, oriented to place , oriented to time, oriented to situation, CN II-XII grossly intact. ABSENT: motor sensory deficit Psychiatric exam: PRESENT: appropriate affect, normal mood. ABSENT: homicidal ideation, suicidal ideation Skin exam: PRESENT: dry, intact, warm. ABSENT: cyanosis, rash Results Laboratory Results: 06/03/14/18 03/14/18 22:55 04:49 04:49 Creatine Kinase 29 L CK-MB (CK-2) 0.39 0.34 Troponin I < 0.012 < 0.012 03/14/18 10:47 Creatine Kinase CK-MB (CK-2) 0.34 Troponin I < 0.012 Qualifiers - * PATIENT BEING DISCHARGED WITH ANY OF THE FOLLOWING DIAGNOSIS: No Plan Time Spent: Less than 30 Minutes
[2018-03-15 14:31] VITALS: BP 152/84
--- NOTE | 2018-03-15 17:19 | XCELERA REPORT ---
[address] [address] Transthoracic Echocardiogram Report Name: JOHN OWUSU Age: 47 yrs Gender: Female : 1970 Patient Status: Inpatient Patient Location: [address] [place] [address] Study Date: 03/15/2018 10:32 AM Height: 62 in Weight: 116 lb BSA: 1.5 m2 Procedure: A two-dimensional transthoracic echocardiogram with color flow and Doppler was performed. Study Quality: Good. Reason For Study: SYNCOPE History: SYNCOPE. Ordering Physician: KIM PÉREZ Performed By: Crystal De Guzman Interpretation Summary The left ventricle is normal in size. There is normal left ventricular wall thickness. LV EF is > than 65% Left ventricular systolic function is normal. Doppler measurements suggest normal left ventricular diastolic function The left ventricular wall motion is normal. There is no thrombus. There is no ventricular septal defect visualized. The right atrium is normal. The left atrial size is normal. The interatrial septum is intact with no evidence for an atrial septal defect. There is no evidence of mitral valve prolapse. There is no vegetation seen on the mitral valve. There is no mitral valve stenosis. There is a mild amount of mitral regurgitation There is no aortic valvular vegetation. There is no aortic valve stenosis There is no LVOT obstruction. No aortic regurgitation is present. There is no tricuspid stenosis. There is a mild amount of tricuspid regurgitation Early mild pulmonary hypertension . RVSP is 33 mm of Hg , with RA mean of 10. There is no pulmonic valvular stenosis. There is no pulmonic valvular regurgitation. The aortic root is normal size. There is no pericardial effusion. MMode/2D Measurements & Calculations RVDd: 2.4 cm LVIDd: 4.5 cm FS: 38.6 % Ao root diam: 2.3 cm IVSd: 0.98 cm LVIDs: 2.7 cm EDV(Teich): 90.7 ml LVPWd: 0.94 cm ESV(Teich): 28.0 ml Ao root area: 4.2 cm2 EF(Teich): 69.1 % Doppler Measurements & Calculations MV E max larissa: MV dec slope: Ao V2 max: LV V1 max P.2 cm/sec 147.4 cm/sec 4.9 mmHg MV A max larissa: 620.6 cm/sec2 Ao max PG: LV V1 max: 95.4 cm/sec MV dec time: 8.7 mmHg 110.4 cm/sec MV E/A: 1.2 0.18 sec MR max larissa: PA V2 max: TR max larissa: 549.3 cm/sec 85.6 cm/sec 239.5 cm/sec MR max PG: PA max P.9 mmHg TR max P.7 mmHg 23.0 mmHg Left Ventricle The left ventricle is normal in size. There is normal left ventricular wall thickness. LV EF is > than 65%. Left ventricular systolic function is normal. Doppler measurements suggest normal left ventricular diastolic function. The left ventricular wall motion is normal. There is no thrombus. There is no ventricular septal defect visualized. Right Ventricle The right ventricle is normal in size and function. Atria The right atrium is normal. The left atrial size is normal. The interatrial septum is intact with no evidence for an atrial septal defect. Mitral Valve There is no evidence of mitral valve prolapse. There is no vegetation seen on the mitral valve. There is no mitral valve stenosis. There is a mild amount of mitral regurgitation. Aortic Valve The aortic valve is trileaflet. The aortic valve opens well. There is no aortic valvular vegetation. There is no aortic valve stenosis. There is no LVOT obstruction. No aortic regurgitation is present. Tricuspid Valve There is no tricuspid stenosis. There is a mild amount of tricuspid regurgitation. Early mild pulmonary hypertension . RVSP is 33 mm of Hg , with RA mean of 10. Pulmonic Valve There is no pulmonic valvular stenosis. There is no pulmonic valvular regurgitation. Great Vessels The aortic root is normal size. Effusions There is no pericardial effusion. : KIM PÉREZ > Virginia Barraza
== END 2018-03-15 13:45 | disposition home or self-care (01) ==
LOC: ER 15:26 → EH 19:41 → 4N 22:32
PROVIDERS: ADMIT Internal Medicine; ATTEND Internal Medicine
DX: G89.29 Other chronic pain (principal); M54.5 Low back pain; F41.8 Other specified anxiety disorders; I16.0 Hypertensive urgency; R55 Syncope and collapse; F17.210 Nicotine dependence, cigarettes, uncomplicated; Z91.14 Patient's other noncompliance with medication regimen; Z59.6 Low income; Z82.49 Family history of ischemic heart disease and other diseases of the circulatory system
CPT/HCPCS: 93005; 99284; 36415 ×2; 82553 ×2; 82550 ×2; 83735; 84443; 85025; 80053; 84484 ×2; 80307; 80061; 93306; 93010; G0378 ×4; J0360 ×2; J3490 ×2; J7030

== ENCOUNTER 2018-03-18 00:27 | Emergency (ER) | payer OTHER ==
[2018-03-18 00:37] VITALS: BP 170/81
--- NOTE | 2018-03-18 02:09 | ER Document Report ---
Doctor's Note Notes: 03/18/18 02:08 I went to see this patient in her room. However, according to the nurse, the patient left without being seen because her boyfriend was also a patient in the ER and was discharged. According to the RN, the patient ambulated with a steady gait and appeared to have capacity to make her own decisions. She was overhead paged 3 times and all bathrooms and rooms were checked. Also, the waiting room and parking lot were also checked for the patient without success. She is a LWBS.
== END 2018-03-18 01:55 | disposition left against medical advice (07) ==
LOC: ER 00:27
DX: Z53.21 Procedure and treatment not carried out due to patient leaving prior to being seen by health care provider (principal)